=== PATIENT | female | born 1980 | race African-American/Black ===

== ENCOUNTER 2017-01-09 07:26 | Day surgery (SDC) | payer OTHER ==
--- NOTE | 2016-12-22 15:17 | HP ---
CC: Dr. Barros; Dr. Diop * PREOPERATIVE HISTORY AND PHYSICAL: DATE OF PREOPERATIVE HISTORY AND PHYSICAL EXAMINATION: 12/22/16 DATE OF ADMISSION: 01/09/17 This patient is scheduled for same-day surgery admission by Dr. Barros on Thursday , 01/09/17. ATTENDING SURGEON: Dr. Nila Barros * (dictated by Jey Mishra NP). CHIEF COMPLAINT: Left breast lump. HISTORY OF PRESENT ILLNESS: The patient is a 36-year-old female referred to Dr. Barros by Dr. Diop for evaluation of a new left breast mass. The patient denies any breast pain or nipple discharge. Dr. Barros performed a fine needle aspiration of the left breast mass and the results revealed atypia, and therefore Dr. Barros has recommended excision of the left breast mass as a same- day surgery procedure at [facility]. Dr. Barros described the nature of the surgical procedure, the rationale for the procedure, the relevant risks and benefits, and today I reviewed the typical postoperative care and recovery. The patient has had a chance to ask questions and stated that she understands the information and is satisfied with the answers given to her questions. She will sign surgical consent on the day of surgery. Menarche was at age 13; first delivery was at age 31; she is not taking control pills but she does have an implanted contraceptive Nexplanon. She has never had radiation to the chest. She has never had a previous breast biopsy. She did breast feed and she is not aware of any relatives with ovarian cancer. Her maternal grandmother may have had a history of breast cancer. PAST MEDICAL HISTORY: Migraine headaches. PAST SURGICAL HISTORY: Open repair of ventral hernia with mesh, 2013; D and C , 2007 and 2004. OBSTETRIC HISTORY: 1, para 2. She is up-to-date with breast exam, pelvic, and Pap smear. She does not get menstrual periods because of the implanted contraceptive, Nexplanon, which is in her arm. MEDICATIONS: 1. Nexplanon implanted contraceptive. 2. Relpax 40 mg 1 tablet at the onset of migraine, may repeat after 2 hours. 3. Tizanidine 2 mg daily at bedtime. 4. Ketorolac 10 mg 1 tablet every 8 hours p.r.n. migraine. 5. Ondansetron 4 mg as needed for nausea. 6. Verapamil ER 120 mg daily at bedtime. 7. Excedrin Migraine as needed. 8. Multivitamin Gummies daily. ALLERGIES: No known drug allergies. FAMILY HISTORY: No known anesthesia complications, bleeding tendencies, or clotting disorders. Maternal grandmother had a history of breast cancer, diabetes, heart disease, and hypertension. No known family history of ovarian cancer. 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 She has never been a smoker. She rarely drinks alcohol and denies the use of other substances. She lives with her 2 daughters, who are twins age 4. REVIEW OF SYSTEMS: Constitutional: No fevers, chills, excessive fatigue, or weight loss. Endocrine: No diabetes or thyroid disease. Hematologic: No easy bruising or bleeding. No previous blood transfusions. Breasts: Abnormal left breast mass. Respiratory: No cough or dyspnea on exertion. Cardiovascular: No anginal chest pain or palpitations. Gastrointestinal: No nausea, vomiting, diarrhea or constipation. Genitourinary: No dysuria. Musculoskeletal: No joint pain or back pain. Neurologic: No blurred vision. History of migraine headaches, none today. General: No history of deep vein thrombosis or pulmonary embolism. No history of anesthesia complications. PHYSICAL EXAMINATION GENERAL SURVEY: The patient is a 36-year-old female, well developed, well nourished, in no acute distress. VITAL SIGNS: Height 63 inches, weight 145 pounds, body mass index 25.7. Blood pressure 116/70, pulse 60 and regular, respiratory rate 16, temperature 98.1 tympanic. HEENT: Benign. NECK: Supple. No cervical lymphadenopathy. No supraclavicular lymphadenopathy. LUNGS: Breath sounds bilaterally clear and equal. BREASTS: Symmetrical. No skin changes. Palpation reveals dominant mass in the left breast located at the 9 o'clock position. The left breast mass is large, soft, smooth at edges, and mobile. No masses noted in the right breast. Nipples are everted. No nipple discharge bilaterally. No palpable axillary lymph adenopathy bilaterally. HEART: Regular rate and rhythm. No murmurs or rubs appreciated. ABDOMEN: Well healed surgical scar above the umbilicus in the midline. Active bowel sounds. Nondistended, nontender throughout. No obvious masses or organomegaly or evidence of ventral hernia. PELVIC AND RECTAL EXAMS: Done recently, not repeated. EXTREMITIES: Warm without edema or skin ulcerations. NEUROLOGIC: Alert and oriented x3, steady gait. SKIN: Warm, dry, and intact. IMPRESSION: Left breast mass. PLAN: Same-day surgery admission to Dr. Barros's service on 01/09/17, for excision of left breast mass. JEY MISHRA, DROP COUNT ASSOCIATE [id number]/[facility] #: [id number] [facility] HOSPITALIdalmis
[~2017-01-09 07:26] MED LIST: Buffered Lidocaine 0.9% SYRIN* 5 ML/SYR SYRINGE INTRADERM ONE; Bupivacaine 0.5% SDV PF* 30 ML VIAL ONE; Famotidine IV* 10 MG/ML 2 ML (20 mg) IV ONE; Lidocaine 1% INJ* 10 MG/ML 30 ML SDV ONE
[2017-01-09] MEDS ORDERED: Buffered Lidocaine 0.9% SYRIN* 5 ML/SYR SYRINGE ONE (07:37)
[2017-01-09] MEDS ORDERED: Famotidine IV* 10 MG/ML 2 ML (20 mg) ONE (07:37)
[2017-01-09] MEDS ORDERED: ceFAZolin 2 GM PREMIX (*) 50 ML IVPB ONE (08:07)
[2017-01-09] MEDS ORDERED: fentaNYL* 50 MCG/ML 2 ML VIAL (100 MCG VIAL) ONE (08:21)
[2017-01-09] MEDS ORDERED: Midazolam* 1 MG/ML 5 ML VIAL (5 MG) ONE (08:21)
[2017-01-09] MEDS ORDERED: Ondansetron INJ* 2 MG/ML VIAL ONE (09:03)
[2017-01-09] MEDS ORDERED: Dexamethasone IV* 4 MG/ML 1 ML (4 MG) ONE (09:03)
[2017-01-09] MEDS ORDERED: Lidocaine 2% PF * 5 ML VIAL ONE (09:03)
[2017-01-09] MEDS ORDERED: Propofol* 10 MG/ML 20 ML BTL IV PUSH ONE (09:03)
[2017-01-09] MEDS ORDERED: Ketorolac INJ* 30 MG/ML 1 ML VIAL ONE (09:03)
[2017-01-09] MEDS ORDERED: oxyCODONE TAB* 5 MG TAB PO PRN (09:04)
[2017-01-09] MEDS ORDERED: DiMENhydriNATE IV* 50 MG/ML VIAL IV PUSH PRN (09:04)
[2017-01-09] MEDS ORDERED: HYDROmorphone INJ* 1 MG/ML CARPUJECT SYRINGE IV PRN (09:04)
[2017-01-09] MEDS ORDERED: Acetaminophen TAB* 325 MG PO PRN (09:04)
[2017-01-09] MEDS ORDERED: HYDROmorphone INJ* 1 MG/ML CARPUJECT SYRINGE ONE (09:24)
--- NOTE | 2017-01-09 09:44 | SURGPN ---
Brief Operative Note - Surgery Procedures: Procedures ANESTH INJECT-SPIN CANAL (11/16/12) ARTIF RUPT MEMBRANES NEC (11/16/12) EKG (11/16/12) MONITORING NOS (11/16/12) INJECT/INFUSE NEC (05/25/12) MANUAL ASSIST DELIV NEC (11/16/12) MEDICAL INDUCTION LABOR (11/16/12) OTH & OPEN REP OTH HERNIA OF ANTER ABD WALL W GRF OR PROSTH (01/25/14) OTHER INSTILLATION (11/16/12) REPAIR OB LACERATION NEC (11/16/12) 01/09/17 Op Note (dictated) Pre-op dx: left breast lump Post-op dx: same Procedure: excision left breast lump Surgeon: Papo Asst: none Anesth: general EBL: 5 cc Complications: none SCDs on during surgery Abx: given pre-op Pt. tolerated procedure well and was transferred to in a stable condition. CLFoster
[2017-01-09] MEDS ORDERED: oxyCODONE/Acetamin 5/325 MG* TAB PO PRN (09:45)
[2017-01-09 11:06] VITALS: BP 101/76
--- NOTE | 2017-01-09 16:21 | OP ---
CC: [facility]; Dr. Addison Loyola OPERATIVE REPORT: DATE OF OPERATION: 01/09/17 DATE OF : 82 SURGEON: Nila Barros MD FIXED INCOME TRADING VICE PRESIDENT: There was no administrative support assistant for this case. PRE-OP DIAGNOSIS: Left breast lump. POST-OP DIAGNOSIS: Left breast lump. OPERATIVE PROCEDURE: Excision of left breast lump. INDICATIONS: Ms. Hamlin is a 36-year-old woman, who presented to the office with a soft mobile lump i n the left breast that was somewhat uncomfortable prompting the plan for surgical intervention. DESCRIPTION OF PROCEDURE: She was brought to the operating room, placed on the OR table in the supi ne position and given general anesthesia. The left breast was prepped and draped in the usual steri le fashion. After infiltrating with local anesthetic, a curvilinear incision was made in a circumar eolar fashion. Subcutaneous tissue was divided with electrocautery and sharp dissection until the in ferior edge of the mass, which was very well defined, could be grasped. 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 This was removed using sharp and blunt dissection and then handed off as a specimen. Hemostasis was assured with electrocautery and the wound was irrigated with sali ne and then additional local was instilled into the wound. Closure was accomplished with 3-0 Polyso rb in a subcutaneous layer and the skin was closed with 4-0 Surgipro in a subcuticular fashion. Marty ri-Strips and a dry sterile dressing were applied. All sponge and instrument counts are correct. Th e patient tolerated the procedure well and was transferred to Recovery in a stable condition. [id number]/[facility] #: [id number]
== END 2017-01-09 11:25 | disposition home or self-care (01) ==
LOC: OR 07:26
PROVIDERS: ATTEND Surgery
DX: N60.12 Diffuse cystic mastopathy of left breast (principal); Z79.3 Long term (current) use of hormonal contraceptives
CPT/HCPCS: 81025; 88307; J0690; J1100; J1170; J1885; J2001; J2250; J2405; J2704; J3010

== ENCOUNTER 2017-09-29 17:35 | Emergency (ER) | payer OTHER ==
[2017-09-29 17:51] VITALS: BP 122/85
[2017-09-29] MEDS ORDERED: Metoclopramide IV* 5 MG/ML 2 ML VIAL ONE (18:11)
[2017-09-29] MEDS ORDERED: Ketorolac INJ* 30 MG/ML 1 ML VIAL IM ONE (18:13)
--- NOTE | 2017-09-29 18:20 | UC ---
Headache HPI - HPI Summary HPI Summary: 36 year old female with history of migraine here with headache. She reports she usually gets Botox for headaches and improved with Excedrin. But symptoms not improved with excedrin and she is due for her botox soon. Reports nausea but no vomiting, numbness or tingling or motor deficit. No other complaints. - History Of Current Complaint Chief Complaint: UCHeadache Stated Complaint: HEADACHE Time Seen by Provider: 09/29/17 17:54 Hx Obtained From: Patient Hx Last Menstrual Period: July 2017- states she has the nexplanon implant Onset/Duration: Gradual Onset Onset Of Symptoms: Gradual Pain Intensity: 6 Timing: Constant Location of Headache: Frontal Associated Signs And Symptoms: Positive: Nausea, Neck Stiffness - Allergies/Home Medications Allergies/Adverse Reactions: Allergies Allergy/AdvReac Type Severity Reaction Status Date / Time No Known Allergies Allergy Verified 09/29/17 17:43 PMH/Surg Hx/FS Hx/Imm Hx Previously Healthy: No - Surgical History Surgical History: Yes Surgery Procedure, Year, and Place: polyp removed from uterus x2 - [facility] - Social History Alcohol Use: None Substance Use Type: None Smoking Status (MU): Never Smoked Tobacco Have You Smoked in the Last Year: No - Immunization History Most Recent Influenza Vaccination: 01/2012 Most Recent Tetanus Shot: 09/07/2012 Review of Systems Constitutional: Negative Skin: Negative Eyes: Negative ENT: Negative Respiratory: Negative Cardiovascular: Negative Gastrointestinal: Negative Genitourinary: Negative Motor: Negative Neurovascular: Negative Musculoskeletal: Negative Neurological: Negative Psychological: Negative All Other Systems Reviewed And Are Negative: Yes Physical Exam Triage Information Reviewed: Yes Appearance: Well-Appearing, No Pain Distress Vital Signs: Initial Vital Signs Temp 37.4 C 09/29/17 17:44 Pulse 92 09/29/17 17:44 Resp 18 09/29/17 17:44 BP 122/85 09/29/17 17:44 Pulse Ox 99 09/29/17 17:44 Eye Exam: Normal ENT Exam: Normal Neck exam: Normal Respiratory Exam: Normal Cardiovascular Exam: Normal Neurological Exam: Normal Psychological Exam: Normal Skin Exam: Normal Headache Course/Dx - Differential Dx/Diagnosis Differential Diagnosis/HQI/PQRI: Migraine, Sinus Headache, Temporal Arteritis Provider Diagnoses: Migraine Discharge - Sign-Out/Discharge Documenting (check all that apply): Discharge/Admit/Transfer - Discharge Plan Condition: Good Disposition: HOME Prescriptions: Butalbital/Aspirin/Caffeine [Fiorinal 50-325-40 mg-] 1 cap PO Q6H PRN #12 cap MDD 2 PRN Reason: Headache/Pain Patient Education Materials: Migraine Headache (ED) Referrals: Addison Loyola MD [Primary Care Provider] - - Billing Disposition and Condition Condition: GOOD Disposition: Home
== END 2017-09-29 18:45 | disposition home or self-care (01) ==
LOC: UCEAST 17:35
DX: G43.909 Migraine, unspecified, not intractable, without status migrainosus (principal); R11.0 Nausea; M43.6 Torticollis
CPT/HCPCS: 96372; 99212; G0463; J1885; J2765

== ENCOUNTER 2018-10-19 12:15 | Emergency (ER) | payer OTHER ==
[2018-10-19] MEDS ORDERED: NS 0.9% 1000 ML** 1,000 ML IV ONE (13:13)
[2018-10-19] MEDS ORDERED: Ketorolac INJ* 30 MG/ML 1 ML VIAL IV ONE (13:36)
--- NOTE | 2018-10-19 13:42 | UC ---
Headache HPI - HPI Summary HPI Summary: PATIENT ARRIVES COMPLAINING OF 12 DAYS OF MIGRAINE HEADACHE. SYMPTOMS NORMALLY MANAGED WITH BOTOX INJECTION EVERY 3 MONTHS AND EXCEDRIN. STATES EXCEDRIN IS NOT HELPING AT PRESENT. CALLED HER NEUROLOGIST ON 10/13/18 WAS GIVEN A SIX-DAY COURSE OF STEROIDS WHICH SHE STATES HAS NOT HELPED. REPORTS SHE IS HAVING BACK PAIN, ABDOMINAL PAIN, NAUSEA AND SWEATS A RESULT OF HER HEADACHE SYMPTOMS. NO FEVER. NO URINARY SX. - History Of Current Complaint Chief Complaint: UCHeadache Stated Complaint: SEVERE HEADACHE Time Seen by Provider: 10/19/18 12:51 Hx Obtained From: Patient Hx Last Menstrual Period: no periods - nexplanon states Onset/Duration: Gradual Onset, Lasting Days, Still Present Onset Of Symptoms: Gradual Pain Intensity: 0 Timing: Constant Character: Dull, Throbbing Location of Headache: Temporal Aggravating Factor(s): Nothing Allevating Factor(s): Nothing Associated Signs And Symptoms: Positive: Nausea. Negative: Dizziness, Seizure, Vomiting, Fever, Neck Pain, Decreased LOC, Visual Changes - Allergies/Home Medications Allergies/Adverse Reactions: Allergies Allergy/AdvReac Type Severity Reaction Status Date / Time No Known Allergies Allergy Verified 10/19/18 12:53 Home Medications: Home Medications Onabotulinimtoxina 100 UNITS* [Botox 100 UNITS*] 100 units .SEE ORDER ONCE 10/19 [History Confirmed 10/19/18] PMH/Surg Hx/FS Hx/Imm Hx Neurological History: Migraine - Surgical History Surgical History: Yes Surgery Procedure, Year, and Place: polyp removed from uterus x2 - [facility] - Family History Known Family History: Positive: Non-Contributory - Social History Alcohol Use: None Substance Use Type: None Smoking Status (MU): Never Smoked Tobacco Have You Smoked in the Last Year: No - Immunization History Most Recent Influenza Vaccination: 01/2012 Most Recent Tetanus Shot: 09/07/2012 Review of Systems All Other Systems Reviewed And Are Negative: Yes Constitutional: Positive: Fatigue Respiratory: Positive: Negative Cardiovascular: Positive: Negative Gastrointestinal: Positive: Abdominal Pain, Nausea Neurological: Positive: Headache Physical Exam Triage Information Reviewed: Yes Appearance: Well-Appearing, Well-Nourished, Pain Distress - MOD Vital Signs: Initial Vital Signs Temp 98.6 F 10/19/18 12:57 Pulse 72 07/16/19 12:57 Resp 24 10/19/18 12:57 BP 126/92 10/19/18 12:57 Pulse Ox 98 10/19/18 12:57 Vital Signs Reviewed: Yes Eyes: Positive: Conjunctiva Clear ENT: Positive: Hearing grossly normal Neck: Positive: Supple Respiratory Exam: Normal Cardiovascular Exam: Normal Abdomen Description: Positive: Nontender, Soft. Negative: CVA Tenderness (R), CVA Tenderness (L), Distended, Guarding Bowel Sounds: Positive: Present Musculoskeletal: Positive: No Edema Neurological: Positive: Alert Psychological: Positive: Age Appropriate Behavior Skin: Negative: Rashes Diagnostics - Radiology CT HEAD W/O CONTRAST Radiology Interpretation Completed By: Radiologist Summary of Radiographic Findings: No intracranial mass or hemorrhage is noted. Headache Course/Dx - Course Course Of Treatment: SLIGHT IMPROVEMENT AFTER TORADOL AND NORMAL SALINE HERE IN THE UC. GIVEN PATIENT'S ASSOCIATED SYMPTOMS HAVE CHECKED A CBC, CMP AND TSH TO FURTHER EVALUATE. PATIENT DECLINES TRANSFER TO THE ER TODAY. CT HEAD OBTAINED AT SHIFT CHANGE. CASE DISCUSSED WITH DR. GOMEZ. OKAY TO BE DISCHARGED HOME IF CT HEAD IS UNREMARKABLE. PT WILL F/U WITH HER NEUROLOGIST. - Differential Dx/Diagnosis Provider Diagnosis: Migraine Discharge - Sign-Out/Discharge Documenting (check all that apply): Patient Departure All imaging exams completed and their final reports reviewed: Yes - Discharge Plan Condition: Stable Disposition: HOME Patient Education Materials: Migraine Headache (ED) Referrals: Bety Tristan MD [Medical Doctor] - 1 Day Additional Instructions: SLIGHT IMPROVEMENT AFTER 1 L NORMAL SALINE AND [address] HEAD TODAY UNREMARKABLE. BLOOD DRAWN TO EVALUATE FOR OTHER UNDERLYING CAUSE OF YOUR SYMPTOMS (BLOOD COUNT, METABOLIC PANEL AND THYROID). WE WILL CALL YOU WITH ANY ABNORMAL RESULTS. FOLLOW-UP WITH YOUR NEUROLOGIST. GO TO THE ER WITHOUT FAIL IF YOUR SYMPTOMS WORSEN. - Billing Disposition and Condition Condition: STABLE Disposition: Home
[2018-10-19 15:22] VITALS: BP 126/70
--- NOTE | 2018-10-19 15:24 | UC ---
Course/Dx - Course Course Of Treatment: Patient was signed out to Dr. Daugherty to follow-up the head CT and the patient and 7. She recommended if the CT of the head is negative she can safely discharged home with follow-up with PCP. The head CT impression: No acute interconnected pathology. She reports improvement in her migraine headache. She was instructed to return to the urgent care or go to the emergency department if symptoms worsen. The patient understands and agrees. - Diagnoses Provider Diagnoses: Migraine Discharge - Sign-Out/Discharge Documenting (check all that apply): Patient Departure All imaging exams completed and their final reports reviewed: Yes - Discharge Plan Condition: Stable Disposition: HOME Patient Education Materials: Migraine Headache (ED) Referrals: Bety Tristan MD [Medical Doctor] - 1 Day Additional Instructions: SLIGHT IMPROVEMENT AFTER 1 L NORMAL SALINE AND [address] HEAD TODAY UNREMARKABLE. BLOOD DRAWN TO EVALUATE FOR OTHER UNDERLYING CAUSE OF YOUR SYMPTOMS (BLOOD COUNT, METABOLIC PANEL AND THYROID). WE WILL CALL YOU WITH ANY ABNORMAL RESULTS. FOLLOW-UP WITH YOUR NEUROLOGIST. GO TO THE ER WITHOUT FAIL IF YOUR SYMPTOMS WORSEN. - Billing Disposition and Condition Condition: STABLE Disposition: Home
[2018-10-19 19:38] LABS: ABS Lymphocytes 1.7 10^3/ul (1.0-4.8); ABS Monocytes 0.4 10^3/ul (0-0.8); ABS Neutrophils 7.7 10^3/ul (1.5-7.7); Eosinophil % 0.2 %; Hematocrit 42 % (35-47); Hemoglobin 14.3 g/dL (12.0-16.0); Lymphocyte % 17.4 %; Mean Corpuscular HGB Conc 34 g/dL (31-36); Mean Corpuscular Hemoglobin 28 pg (27-31); Mean Corpuscular Volume 82 fL (80-97); Mean Platelet Volume 8.5 fL (7.4-10.4); Nucleated Red Blood Cells % 0.1; Platelet Count 278 10^3/uL (150-450); Red Cell Distribution Width 14 % (10-15)
[2018-10-19 19:43] LABS: Albumin 4.1 g/dL (3.2-5.2); Calcium 9.1 mg/dL (8.6-10.3); Potassium 4.2 mmol/L (3.5-5.0); Total Bilirubin 0.9 mg/dL (0.2-1.0)
[2018-10-19 19:49] LABS: Albumin/Globulin Ratio 1.6 (1-3); BUN/Creatinine Ratio 18.3 (8-20); EGFR African American 136.9 (>60); EGFR Non-African American 113.1 (>60); Globulin 2.5 g/dL (2-4); Total Protein 6.6 g/dL (6.4-8.9)
[2018-10-19 20:02] LABS: TSH (Thyroid Stimulating Horm) 0.41 mcIU/mL (0.34-5.60)
--- NOTE | 2018-10-20 08:11 | UC ---
- Progress Note Progress Note: Please call pt. CBC and CMP grossly unremarkable. TSH is borderline low. Recommend recheck with PCP. Borderline hyperthyroidism may explain some of her symptoms. Course/Dx - Diagnoses Provider Diagnoses: Migraine Discharge - Sign-Out/Discharge Documenting (check all that apply): Post-Discharge Follow Up All imaging exams completed and their final reports reviewed: Yes - Discharge Plan Condition: Stable Disposition: HOME Patient Education Materials: Migraine Headache (ED) Referrals: Bety Tristan MD [Medical Doctor] - 1 Day Additional Instructions: SLIGHT IMPROVEMENT AFTER 1 L NORMAL SALINE AND [address] HEAD TODAY UNREMARKABLE. BLOOD DRAWN TO EVALUATE FOR OTHER UNDERLYING CAUSE OF YOUR SYMPTOMS (BLOOD COUNT, METABOLIC PANEL AND THYROID). WE WILL CALL YOU WITH ANY ABNORMAL RESULTS. FOLLOW-UP WITH YOUR NEUROLOGIST. GO TO THE ER WITHOUT FAIL IF YOUR SYMPTOMS WORSEN. - Billing Disposition and Condition Condition: STABLE Disposition: Home
--- NOTE | 2018-10-20 17:21 | UC ---
- Progress Note Progress Note: urine culture final neg no change daren 10/20/18 Course/Dx - Diagnoses Provider Diagnoses: Migraine Discharge - Sign-Out/Discharge Documenting (check all that apply): Post-Discharge Follow Up All imaging exams completed and their final reports reviewed: Yes - Discharge Plan Condition: Stable Disposition: HOME Patient Education Materials: Migraine Headache (ED) Referrals: Bety Tristan MD [Medical Doctor] - 1 Day Additional Instructions: SLIGHT IMPROVEMENT AFTER 1 L NORMAL SALINE AND [address] HEAD TODAY UNREMARKABLE. BLOOD DRAWN TO EVALUATE FOR OTHER UNDERLYING CAUSE OF YOUR SYMPTOMS (BLOOD COUNT, METABOLIC PANEL AND THYROID). WE WILL CALL YOU WITH ANY ABNORMAL RESULTS. FOLLOW-UP WITH YOUR NEUROLOGIST. GO TO THE ER WITHOUT FAIL IF YOUR SYMPTOMS WORSEN. - Billing Disposition and Condition Condition: STABLE Disposition: Home
== END 2018-10-19 15:10 | disposition home or self-care (01) ==
LOC: UCEAST 12:15
DX: G43.909 Migraine, unspecified, not intractable, without status migrainosus (principal)
CPT/HCPCS: 36415; 70450; 80053; 81003; 84443; 84702; 85025; 87086; 96360; 96374; 99211; G0463; J1885

== ENCOUNTER 2018-12-23 07:42 | Emergency (ER) | payer OTHER ==
--- OUTSIDE RECORDS SUMMARY | 2018-12-23 07:50 | XMS REPORT | Continuity of Care Document ---
:1980 External Reference #:[id number] Author Name Shell Ugalde Care Team Providers Name Role Phone Brook Enriquez CNP Care Team Information Cover Stripper Unavailable Daniel Mena D.O. Primary Care Physician Unavailable Payers Date Identification Numbers Payment Provider Subscriber Policy Number: [id number] [employer] Jayne Hamlin PayID: [id number] [address] [place] [address] Expires: 2016 Policy Number: [id number] [facility] Jayne Hamlin PayID: [id number] [facility]n [facility] [employer] [facility] [address] [place] [address] Effective: 2012 Policy Number: [id number] [employer] Jayne Hamlin Expires: 2014 PayID: [id number] [address] [address] [place] [address] Effective: 2012 Policy Number: [id number] Medicaid Jayne Hartmann Hamlin Expires: 2012 Group Name: 1 1 [address] PayID: [id number] [place] [address] Effective: 2012 Policy Number: [id number] [employer] Jayne Hartmann Hamlin Expires: 2012 PayID: [id number] [address] [place] [address] Expires: 2012 Policy Number: [id number] [facility] Jayne Hartmann Hamlin Group Number: [id number] [address] PayID: [id number] [place] [address] Effective: 2014 Policy Number: [id number] [employer] Jayne Hamlin Expires: 2015 PayID: [id number] [address] [address] [place] [address] Effective: 2016 Policy Number: [id number] [facility] Jayne Hamlin Expires: 2018 Group Number: 50% [id number] PayID: [id number] [address] [place] [address] Problems Active Problems Provider Date Refractory migraine Marybel Haley M.D. Onset: 01/29/2011 Acute sinusitis Dick Mckeon NP Onset: 05/12/2016 Family History Date Family Member(s) Observation Comments Mother DM Document: 08/11/07 - Prog Note - Sosa Mother Migraines Document: 08/11/07 - Prog Note - Sosa Mother IBS Document: 08/11/07 - Prog Note - Sosa First Brother Asthma And Migraine Document: 08/11/07 - Prog Note - Sosa Second Brother Migraine Document: 08/11/07 - Prog Note - Sosa Third Brother HTN And Migraine Document: 08/11/07 - Prog Note - Sosa Second Sister Migraine Document: 08/11/07 - Prog Note - Sosa Social History Type Date Description Comments Sex Unknown Marital Status Occupation [employer] Document: 08/11/07 - [place] Prog Note - Sosa Hand Dominance Right-handed Tobacco Use Start: Unknown Never Smoked Cigarettes ETOH Use Rarely consumes alcohol special occasions Tobacco Use Start: Unknown Patient has never smoked Smoking Status Reviewed: 07/02/18 Patient has never smoked Allergies, Adverse Reactions, Alerts Description No Known Drug Allergies Medications Active Medications SIG Qnty Indications Ordering Provider Date Ketorolac Tromethamine take 1 by mouth 3tabs Bety Tristan, 10/20/2018 every 12 hours M.D. 10mg Tablets for severe headache. Take with food and water. Tizanidine HCL take 1 tablet by 30caps G43.011 Bety Trisatn, 07/21/2016 2mg mouth at bedtime M.D. Capsules Ondansetron HCL comp[leted one 40tabs G43.011 Bety Tristan, 11/05/2015 4mg to two by mouth M.D. Tablets every 8 hours as needed for nausea Verapamil HCL ER 1 by mouth every 30caps G43.719 Bety Tristan, 12/26/2014 120mg night at bedtime M.D. Caps ER 24HR Excedrin Migraine 1 po as needed Unknown [phone] Tablets Nexplanon Unknown 68mg Implant Botox Unknown 200Unit Solution Rec History Medications Medrol take as directed. 21units Bety Tristan, 10/13/2018 - 4mg TBPK take in morning with M.D. 10/20/2018 food Oxycodone-Acetaminoph 1 tab by mouth every 12tabs Laly B. 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 9 M.D. 06/25/2017 may repeat after 2 hours, no more than 2 tabs in 24 hours, no more than 2 days a week Prednisone take 3 po qam x 20tabs G43.01 Bety Tristan, 07/21/2016 - 20mg Tablets 3days, then 2 po qam 1 M.D. 11/20/2016 x3 days then 1 po qam x3 days then 1/2 po qam x3 days (take in am with food) Amoxicillin/Clavulana 1 tablet by mouth 20tabs J01.90 Dick Mckeon, 2016 - te Potassium twice a day x's 10 TAR WORKER 05/22/2016 875-125mg days Tablets Prednisone Completed take 3 po 20tabs Bety Tristan, 12/11/2015 - 20mg Tablets qam x 3days, then 2 M.D. 07/20/2016 po qam x3 days then 1 po qam x3 days then 1/2 po qam x3 days (take in am with food) Ketorolac take 1 by mouth every 12tabs G43.01 Bety Tristan, 11/05/2015 - Tromethamine 8 hours as needed for 1 M.D. 06/25/2017 10mg migraine. take with Tablets food. Cyclobenzaprine HCL 1 - 2 by mouth every 40tabs Bety Tristan, 2014 - 5mg 8 hours, as needed M.D. 06/19/2015 Tablets muscle spasm/ headache Prednisone take 3 po qam x 20tabs 346.71 Bety Azalea, 12/06/2014 - 20mg Tablets 3days, then 2 po qam M.D. 01/31/2015 x3 days then 1 po qam x3 days then 1/2 po qam x3 days (take in am with food) Verapamil HCL ER take one by mouth at 30caps 346.71 Bety Tristan, 2014 - 100mg bedtime M.D. 12/26/2014 Caps ER 24HR Nortriptyline HCL 2 by mouth every 90caps 346.71 Bety Tristan, 2014 - 10mg night at bedtime M.D. 12/05/2014 Capsules Sumatriptan Succinate Take 1/2 To 1 Tablet 12tabs 346.10 Sadaf 01/13/2012 - By Mouth Upon Onset Bernard, N.P. 04/30/2012 100mg Tablets Of Headache: August Repeat 1 Time After 2 Hours If For Headache Recurs Relpax prn q2h po mdd 2 6tabs 346.10 Addison Ma 12/29/2011 - 40mg Tablets [place], 01/13/2012 Remberto.DMarlene,FACP Propranolol HCL ER 1 po qd 30caps 346.10 Addison Ma 12/29/2011 - 60mg [place], 04/30/2012 Caps ER 24HR M.D.,FACP Ondansetron Odt po tid prn 20tabs 346.10 Addison Ma 12/29/2011 - 4mg Nir, 04/30/2012 Tablets Dispers M.D.,FACP Maxalt po one at onset; august 18tabs 346.10 Addison Ma 12/18/2011 - 10mg Tablets repeat in 2 hours x1. [place], 12/29/2011 max daily dose 2. M.D.,FACP Riboflavin 4 qd 120caps 346.80 Addison Ma 12/18/2011 - 100mg [place], 04/30/2012 Capsules Remberto.D.,FACP Magnesium Oxide po qd 30caps 346.80 Addison Ma 12/18/2011 - 400mg [place], 04/30/2012 Capsules Remberto.DMarlene,FACP Maxalt 1 po q2h MDD3 prn 18tabs Addison Ma 12/11/2011 - 5mg Tablets [place], 12/18/2011 Fabrizio,FACP Depakote ER 1 po qpm 30tabs 346.10 Addison Ma 07/28/2011 - 500mg [place], 12/18/2011 Tablets ER 24HR Fabrizio,FACP Ibuprofen 1 po tid prn 60tabs Marybel Haley 02/13/2011 - 600mg Tablets Remberto.Anil 04/30/2012 Amitriptyline HCL Take 1 tablet at 30tabs 346.80 Marybel Haley, 02/13/2011 - 10mg night for migraine Fabrizio 07/28/2011 Tablets prevention Ibuprofen 1 po tid prn 60tabs Aman Davila 01/28/2010 - 600mg Tablets Fabrizio Sweeney 02/13/2011 Amoxicillin 2 tabs po bid for 10 40tabs 079.99 Addison Ma 05/02/2008 - 500mg days Nir, 02/02/2009 Tablets Fabrizio,FACP Zomig 1 prn migraine august 18tabs 346.80 Addison Ma 08/11/2007 - 5mg Tablets repeat in 2 hours x 1 Nir, 01/29/2011 Fabrizio,FACP Depakote ER 1 po qpm 30tabs Addison Ma 08/09/2007 - 500mg Nir, 08/02/2009 Tablets ER 24HR Fabrizio,FACP Maxalt prn MDD2 18tabs Addison Ma 08/09/2007 - 5mg Tablets Nir, 08/11/2007 Fabrizio,FACP Naprosyn 1 PO bid prn 50tabs Addison Ma 08/09/2007 - 500mg Tablets [place], 08/11/2007 Fabrizio,FACP Fluarix Quadrivalent inject 0.5 milliliter Unknown - intramuscularly 11/20/2016 0.5ml Gayle Multi Adult Gummies 1 by mouth every day Unknown - 06/25/2017 Chewtabs Cyclobenzaprine HCL 1-2 tablet by mouth Unknown - 5mg three times a day as 09/24/2015 Tablets needed Propranolol HCL ER 1 po qd Cowdery, - 80mg MD Bety 05/23/2014 Caps ER 24HR Magnesium Oxide 1 by mouth every day 90tabs Unknown - 01/04/2014 400(240Mg) mg Tablets Naproxen Unknown - 05/23/2014 Nifedipine ER 1 po qd 90tabs Unknown - 30mg 06/13/2013 Tablets ER 24HR Labetalol HCL 1 po tid 60tabs Unknown - 200mg 06/13/2013 Tablets Multivitamins 1 capsule daily 30caps Unknown - Capsules 08/01/2014 Herbal Anti Headache 1 cap as needed Unknown - Remedy 12/13/2012 Tylenol 2 tabs po prn Unknown - 500mg Tablets 06/22/2013 Ferrous Gluconate 1 tabpo 2x per day 60tabs Unknown - Iron 12/13/2012 246(28Fe) mg Tablets Calcium 1200 1 po qd 90units Unknown - 12/13/2012 [id number] Chewtabs 1 po every day 100tabs Unknown - Multivitamin-Ultra 12/13/2012 Tablets Crinone Unknown - 8% Gel 07/19/2012 Excedrin Migraine prn Unknown - 12/11/2011 Tablets Medications Administered in Office Medication SIG Qnty Indications Ordering Provider Date Influenza,Nasal,Unspecified Unknown 01/01/2018 Injection Influenza,Unspecified Unknown 11/12/2016 Injection Celestone 3 mg and 3mg Rosetta Agustin, 06/22/2013 Injection M.D. Immunizations CPT Code Status Date Vaccine Lot # [id number] Given 01/24/2016 Afluria Vaccine 62030 Given 12/27/2014 Influenza Virus Vaccine, Quadrivalent, Split, Preservative Free 21818 Given 01/20/2014 Flu Vaccine Split Virus Preservative Free For Indiv 3Yr Older Q2035 Given 01/26/2013 Afluria Vaccine [id number] Given 12/18/2011 Fluzone Vaccine [id number] Vital Signs Date Vital Result Comment 11/10/2018 10:44am Height 63 inches 5'3" Weight 149.25 lb Heart Rate 88 /min BP Systolic Sitting 110 mmHg BP Diastolic Sitting 78 mmHg Respiratory Rate 16 /min BMI (Body Mass Index) 26.4 kg/m2 07/02/2018 3:35pm Height 63 inches 5'3" Weight 140.00 lb Heart Rate 86 /min BP Systolic Sitting 114 mmHg BP Diastolic Sitting 74 mmHg Respiratory Rate 16 /min BMI (Body Mass Index) 24.8 kg/m2 01/01/2018 10:08am Height 63 inches 5'3" Weight 145.00 lb Heart Rate 70 /min BP Systolic Sitting 120 mmHg BP Diastolic Sitting 76 mmHg Respiratory Rate 16 /min BMI (Body Mass Index) 25.7 kg/m2 06/26/2017 10:37am Height 63 inches 5'3" Weight 143.00 lb Heart Rate 72 /min BP Systolic Sitting 128 mmHg BP Diastolic Sitting 78 mmHg Respiratory Rate 16 /min BMI (Body Mass Index) 25.3 kg/m2 01/13/2017 9:33am Heart Rate 72 /min BP Systolic 118 mmHg BP Diastolic 82 mmHg Respiratory Rate 16 /min Body Temperature 98.2 F 2016 10:55am Height 63 inches 5'3" Weight 145.00 lb Heart Rate 60 /min BP Systolic 116 mmHg BP Diastolic 70 mmHg Respiratory Rate 16 /min Body Temperature 98.1 F BMI (Body Mass Index) 25.7 kg/m2 12/16/2016 10:40am Height 63 inches 5'3" Weight 145.00 lb Heart Rate 72 /min BP Systolic 120 mmHg BP Diastolic 82 mmHg Respiratory Rate 16 /min Body Temperature 98.0 F BMI (Body Mass Index) 25.7 kg/m2 11/25/2016 11:35am Height 62 inches 5'2" Weight 141.00 lb Heart Rate 68 /min BP Systolic 122 mmHg BP Diastolic 82 mmHg Respiratory Rate 16 /min Body Temperature 98.7 F BMI (Body Mass Index) 25.8 kg/m2 11/21/2016 2:16pm Height 63 inches 5'3" Weight 141.00 lb Heart Rate 72 /min BP Systolic Sitting 112 mmHg BP Diastolic Sitting 78 mmHg Respiratory Rate 14 /min BMI (Body Mass Index) 25.0 kg/m2 07/21/2016 10:34am Height 63 inches 5'3" Weight 138.38 lb Heart Rate 60 /min BP Systolic Sitting 104 mmHg BP Diastolic Sitting 70 mmHg Respiratory Rate 12 /min BMI (Body Mass Index) 24.5 kg/m2 05/12/2016 12:05pm Weight 137.00 lb Heart Rate 64 /min BP Systolic Sitting 118 mmHg BP Diastolic Sitting 64 mmHg Body Temperature 97.8 F O2 % BldC Oximetry 98 % 11/05/2015 1:04pm Height 63 inches 5'3" Weight 130.25 lb Heart Rate 68 /min BP Systolic Sitting 92 mmHg BP Diastolic Sitting 60 mmHg Respiratory Rate 17 /min BMI (Body Mass Index) 23.1 kg/m2 09/24/2015 1:34pm Height 63 inches 5'3" Weight 120.00 lb Heart Rate 76 /min BP Systolic Sitting 112 mmHg BP Diastolic Sitting 74 mmHg Respiratory Rate 14 /min BMI (Body Mass Index) 21.3 kg/m2 06/20/2015 3:29pm Height 63 inches 5'3" Weight 123.00 lb Heart Rate 72 /min BP Systolic Sitting 118 mmHg BP Diastolic Sitting 76 mmHg Respiratory Rate 16 /min BMI (Body Mass Index) 21.8 kg/m2 02/01/2015 9:34am Height 63 inches 5'3" Weight 125.00 lb Heart Rate 68 /min BP Systolic Sitting 122 mmHg BP Diastolic Sitting 76 mmHg Respiratory Rate 16 /min BMI (Body Mass Index) 22.1 kg/m2 12/06/2014 12:04pm Height 63 inches 5'3" Weight 121.00 lb Heart Rate 76 /min BP Systolic Sitting 100 mmHg BP Diastolic Sitting 60 mmHg Respiratory Rate 16 /min BMI (Body Mass Index) 21.4 kg/m2 10/12/2014 12:10pm Height 63 inches 5'3" Weight 121.00 lb Heart Rate 72 /min BP Systolic Sitting 112 mmHg BP Diastolic Sitting 76 mmHg Respiratory Rate 16 /min BMI (Body Mass Index) 21.4 kg/m2 08/02/2014 11:50am Height 63 inches 5'3" Weight 118.00 lb Heart Rate 68 /min BP Systolic Sitting 104 mmHg BP Diastolic Sitting 66 mmHg Respiratory Rate 16 /min BMI (Body Mass Index) 20.9 kg/m2 05/24/2014 1:11pm Height 63 inches 5'3" Weight 122.00 lb Heart Rate 64 /min BP Systolic Sitting 112 mmHg BP Diastolic Sitting 68 mmHg Respiratory Rate 16 /min BMI (Body Mass Index) 21.6 kg/m2 01/05/2014 1:05pm Height 63 inches 5'3" Weight 123.38 lb Heart Rate 78 /min BP Systolic Sitting 102 mmHg BP Diastolic Sitting 68 mmHg Respiratory Rate 16 /min BMI (Body Mass Index) 21.9 kg/m2 10/12/2013 4:27pm Height 63 inches 5'3" Weight 118.00 lb Heart Rate 76 /min BP Systolic Sitting 110 mmHg BP Diastolic Sitting 78 mmHg Respiratory Rate 16 /min BMI (Body Mass Index) 20.9 kg/m2 06/22/2013 12:03pm Height 63 inches 5'3" Weight 110.00 lb Heart Rate 72 /min BP Systolic 120 mmHg BP Diastolic 75 mmHg BMI (Body Mass Index) 19.5 kg/m2 06/13/2013 1:27pm Heart Rate 67 /min BP Systolic Sitting 120 mmHg BP Diastolic Sitting 60 mmHg Respiratory Rate 16 /min 12/13/2012 1:15pm Heart Rate 89 /min BP Systolic Sitting 140 mmHg BP Diastolic Sitting 98 mmHg Respiratory Rate 12 /min 07/19/2012 2:23pm Heart Rate 86 /min BP Systolic Sitting 112 mmHg BP Diastolic Sitting 60 mmHg Respiratory Rate 16 /min 04/30/2012 2:25pm Height 62.75 inches 5'2.75" Weight 113.00 lb Heart Rate 64 /min BP Systolic Sitting 102 mmHg BP Diastolic Sitting 62 mmHg BMI (Body Mass Index) 20.2 kg/m2 01/13/2012 10:02am Height 62.75 inches 5'2.75" Weight 124.00 lb Heart Rate 76 /min BP Systolic Sitting 100 mmHg BP Diastolic Sitting 60 mmHg Body Temperature 98.0 F lt ear BMI (Body Mass Index) 22.1 kg/m2 12/29/2011 9:57am Height 62.75 inches 5'2.75" Weight 124.00 lb Heart Rate 80 /min BP Systolic Sitting 94 mmHg BP Diastolic Sitting 76 mmHg BMI (Body Mass Index) 22.1 kg/m2 12/18/2011 8:33am Height 63 inches 5'3" Weight 124.00 lb Heart Rate 88 /min BP Systolic Sitting 106 mmHg BP Diastolic Sitting 64 mmHg BMI (Body Mass Index) 22.0 kg/m2 07/28/2011 11:38am Height 63 inches 5'3" Weight 115.00 lb Heart Rate 76 /min BP Systolic Sitting 100 mmHg BP Diastolic Sitting 80 mmHg BMI (Body Mass Index) 20.4 kg/m2 02/13/2011 9:44am Height 63 inches 5'3" Weight 110.00 lb Heart Rate 76 /min BP Systolic Sitting 100 mmHg BP Diastolic Sitting 64 mmHg BMI (Body Mass Index) 19.5 kg/m2 01/29/2011 9:44am Height 63 inches 5'3" Weight 110.00 lb Heart Rate 68 /min BP Systolic Sitting 108 mmHg BP Diastolic Sitting 66 mmHg Body Temperature 99.0 F BMI (Body Mass Index) 19.5 kg/m2 01/28/2010 3:50pm Weight 106.00 lb Heart Rate 88 /min BP Systolic Sitting 120 mmHg BP Diastolic Sitting 72 mmHg 08/02/2009 9:23am Weight 97.00 lb Heart Rate 70 /min BP Systolic Sitting 120 mmHg BP Diastolic Sitting 70 mmHg 02/02/2009 11:07am Height 65 inches 5'5" Weight 104.00 lb Heart Rate 78 /min BP Systolic Sitting 90 mmHg BP Diastolic Sitting 66 mmHg BMI (Body Mass Index) 17.3 kg/m2 05/02/2008 1:05pm Height 65 inches 5'5" Weight 101.00 lb Heart Rate 62 /min BP Systolic Sitting 108 mmHg BP Diastolic Sitting 58 mmHg BMI (Body Mass Index) 16.8 kg/m2 08/11/2007 2:17pm Weight 97.00 lb Heart Rate 70 /min BP Systolic Sitting 110 mmHg BP Diastolic Sitting 60 mmHg Results Test Date Facility Test Result H/L Range Note Laboratory test [facility] Cytology SEE RESULT 1 finding [address] [place] [place], [place] [id number] [phone] Laboratory test [facility] Surgical SEE RESULT 2 finding [address] Pathology BELOW [place], [place] [id number] [phone] Laboratory test [facility] Cytology SEE RESULT 3 finding [address] Non-Atm Technician BELOW [place], [place] [id number] [phone] Laboratory test [facility] Urine Negative Normal Negative 4 finding [address] [place], [place] [id number] [phone] Creatinine 24HR [facility] Urine Random 73.9 mg/dL Urine [address] Creatinine [place], [place] [id number] [phone] Urine Creatinine/24HR 1108.5 mg/24Hr 600-1800 Urine Collection Time 24 Urine Total Volume 1500 mL Total Protein 24HR 11/05/2012 [facility] Urine Random Total 15 mg/dL Urine [address] [place] [address] [phone] Urine Total Protein/24HR 225 mg/24Hr High 0-165 Type & Screen 11/04/2012 [facility] Patient Blood Type B Positive [address] [place] [address] [phone] Antibody Screen NEGATIVE Comp Metabolic Panel 11/04/2012 [facility] Sodium 134 mmol/L 133-[address] [place] [address] [phone] Potassium 3.8 mmol/L 3.5-5.0 Chloride 106 mmol/L 101-111 Co2 Carbon Dioxide 21.0 mmol/L Low 22-32 Anion Gap 7.0 mmol/L 2-11 Glucose 87 mg/dL 70-100 Blood Urea Nitrogen 2 mg/dL Low 6-24 Creatinine 0.50 mg/dL 0.50-1.40 BUN/Creatinine Ratio 4.0 Low 8-20 Calcium 8.5 mg/dL 8.1-9.9 Total Protein 5.4 g/dL Low 6.2-8.1 Albumin 2.3 g/dL Low 3.6-5.4 Globulin 3.1 g/dL 2-4 Albumin/Globulin Ratio 0.7 Low 1-3 Total Bilirubin 1.0 mg/dL 0.4-1.5 Alkaline Phosphatase 210 U/L High 30-110 Alt 12 U/L Low 14-54 Ast 21 U/L 12-42 Egfr Non- 144.9 >60 Egfr 186.3 >60 5 CBC No Diff 11/04/2012 [facility] White Blood 7.7 10^3/uL 4.8 -10.[address] [place] [address] [phone] Red Blood Count 4.09 10^6/uL 4.0-5.4 Hemoglobin 10.6 g/dL Low 12.0-16.0 Hematocrit 33 % Low 35-47 Mean Corpuscular Volume 80 fL 80-97 Mean Corpuscular Hemoglobin 26 pg Low 27-31 Mean Corpuscular HGB Conc 33 g/dL 31-36 Red Cell Distribution Width 14 % 10.5-15 Platelet Count 196 10^3/uL 150-450 Mean Platelet Volume 9 um3 7.4-10.4 Urine Culture And 11/04/2012 [facility] Urine (SEE NOTE) [address] [place] [address] [phone] Urine Microscopic 11/04/2012 [facility] Urine WBC 1+ (<10 None Seen [address] /hpf) [place] [address] [phone] Urine RBC None Seen None Seen Urine Epithelial Cells 2+ Squamous /hpf None Seen Bacteria Urine 1+ None Seen Urinalysis 11/04/2012 [facility] Urine Color Yellow [address] [place] [address] [phone] Urine Appearance Clear Urine Specific [place] 1.005 Low 1.010-1.030 Urine Esterase Trace Abnormal Negative Urine Nitrate Negative Negative Urine Urobilinogen Negative E.U./dL Negative Urine Protein Negative mg/dL Negative Urine pH 7.0 5-9 Urine Blood Negative Negative Urine Ketones Negative mg/dL Negative Urine Bilirubin Negative Negative Urine Glucose Negative mg/dL Negative Laboratory test 11/04/2012 [facility] Urine Random 10 mg/dL finding [address] [address] [phone] GC/Chlamydia 05/26/2012 [facility] GC/Chlamydia (SEE NOTE) 7 Amplified Rna [address] [place] [address] [phone] CBC No Diff 05/26/2012 [facility] White Blood 9.6 10^3/uL 4.8 -[address] Count .8 [place] [address] [phone] Red Blood Count 4.01 10^6/uL 4.0-5.4 Hemoglobin 10.5 g/dL Low 12.0-16.0 Hematocrit 32 % Low 35-47 Mean Corpuscular Volume 80 fL 80-97 Mean Corpuscular Hemoglobin 26 pg Low 27-31 Mean Corpuscular HGB Conc 33 g/dL 31-36 Red Cell Distribution Width 15 % 10.5-15 Platelet Count 268 10^3/uL 150-450 Mean Platelet Volume 9 um3 7.4-10.4 Type & Screen 05/26/2012 [facility] Patient Blood Type B Positive [address] [place] [address] [phone] Antibody Screen NEGATIVE Syphilis Screen 05/26/2012 [facility] Syphilis IgG TNP Nonreactive [address] [place], [place] [id number] [phone] RPR Nonreactive Nonreactive RPR Titer TNP Pediatric/Maternal YES Laboratory 05/26/2012 [facility] Hepatitis B Nonreactive Nonreactive 8 test finding [address] [place] [address] Antigen [phone] HIV 1 2 AB Nonreactive Nonreactive 9 Laboratory test 05/26/2012 [facility] Hemoglobin A1c 5.3 % Less than [address] 6.0 [place], [place] [id number] [phone] Rubella Screen Immune Immune Urine Culture And 05/25/2012 [facility] Urine Culture (SEE NOTE ) [address] [place], [place] [id number] [phone] Laboratory test 05/25/2012 [facility] Pathologist (SEE NOTE) [address] [place] [address] [phone] Manual Differential 05/25/2012 [facility] Neutrophil % 54 % 38-[address] [place], [place] [address] [phone] Lymphocytes % 20 % Low 25-47 Monocytes % 4 % 0-13 Eosinophils % 22 % High 0-6 Microcytosis 1+ Hypochromasia 1+ CBC Auto 05/25/2012 [facility] White Blood 12.1 10^3/uL High 4.8-10.[address] [place] [address] [phone] Red Blood Count 4.49 10^6/uL 4.0-5.4 Hemoglobin 11.9 g/dL Low 12.0-16.0 Hematocrit 35 % 35-47 Mean Corpuscular Volume 79 fL Low 80-97 Mean Corpuscular Hemoglobin 26 pg Low 27-31 Mean Corpuscular HGB Conc 34 g/dL 31-36 Red Cell Distribution Width 15 % 10.5-15 Platelet Count 311 10^3/uL 150-450 Mean Platelet Volume 8 um3 7.4-10.4 Abs Neutrophils 6.6 10^3/uL 1.5-7.7 Abs Lymphocytes 2.3 10^3/uL 1.0-4.8 Abs Monocytes 0.7 10^3/uL 0-0.8 Abs Eosinophils 2.4 10^3/uL High 0-0.6 Abs Basophils 0 10^3/uL 0-0.2 Abs Nucleated RBC 0 10^3/uL Comp Metabolic Panel 05/25/2012 [facility] Sodium 134 mmol/L 133-[address] [place] [address] [phone] Potassium 3.6 mmol/L 3.5-5.0 Chloride 105 mmol/L 101-111 Co2 Carbon Dioxide 20.0 mmol/L Low 22-32 Anion Gap 9.0 mmol/L 2-11 Glucose 83 mg/dL 70-100 Blood Urea Nitrogen 4 mg/dL Low 6-24 Creatinine 0.44 mg/dL Low 0.50-1.40 BUN/Creatinine Ratio 9.1 8-20 Calcium 9.3 mg/dL 8.1-9.9 Total Protein 6.2 g/dL 6.2-8.1 Albumin 3.2 g/dL Low 3.6-5.4 Globulin 3.0 g/dL 2-4 Albumin/Globulin Ratio 1.1 1-3 Total Bilirubin 0.7 mg/dL 0.4-1.5 Alkaline Phosphatase 110 U/L 30-110 Alt 28 U/L 14-54 Ast 22 U/L 12-42 Egfr Non- 167.9 >60 Egfr 215.9 >60 13 Urine Microscopic 05/25/2012 [facility] Urine WBC 2+ (>10-30 None Seen [address] /hpf) [place] [address] [phone] Urine RBC 1+ (<3 /hpf) None Seen Urine Mucus Present /lpf Absent Urine Epithelial Cells 2+ Squamous /hpf None Seen Bacteria Urine 2+ None Seen Urinalysis 05/25/2012 [facility] Urine Color Arleen [address] [place] [address] [phone] Urine Appearance Cloudy Urine Specific [place] 1.025 1.010-1.030 Urine Esterase 1+ Abnormal Negative Urine Nitrate Negative Negative Urine Urobilinogen Negative E.U./dL Negative Urine Protein Trace mg/dL Abnormal Negative Urine pH 6.5 5-9 Urine Blood Negative Negative Urine Ketones Trace mg/dL Abnormal Negative Urine Bilirubin Negative Negative Urine Glucose Negative mg/dL Negative Urinalysis 05/25/2012 [facility] Urine Color Yellow [address] [place] [address] [phone] Urine Appearance Clear Urine Specific [place] 1.013 1.010-1.030 Urine Esterase Negative Negative Urine Nitrate Negative Negative Urine Urobilinogen Negative E.U./dL Negative Urine Protein Negative mg/dL Negative Urine pH 6.5 5-9 Urine Blood Negative Negative Urine Ketones 2+ mg/dL Abnormal Negative Urine Bilirubin Negative Negative Urine Glucose Negative mg/dL Negative Laboratory test 12/26/2011 [facility] NEGATIVE Negative [address] (HCG) [place] [address] [phone] Urinalysis 12/26/2011 [facility] Ua Color YELLOW Yellow W/Microscopic [address] [place] [address] [phone] Appearance-Urine CLEAR Clear Specific [place]-Ur 1.006 Low 1.010-1.030 Esterase-Urine NEGATIVE Negative Nitrite NEGATIVE Negative [id number] NEGATIVE Negative Protein-Urine NEGATIVE Negative PH-Urine 7.5 5-9 Blood-Urine 1+ Abnormal Negative Ketones-Urine NEGATIVE Negative Bilirubin-Ur NEGATIVE Negative Glucose-Urine NEGATIVE Negative WBC-Urine 0-2 0-5 RBC-Urine 0-2 0-2 Epith Cells-Ur MODERATE None Bacteria-Urine TRACE None CBC Auto Diff 12/26/2011 [facility] White Blood 17.9 CUMM High 4.8-10.[address] [place] [address] [phone] Red Cell Count 4.69 CUMM 4.2-5.4 Hemoglobin 12.5 g/dL 12.0-16.0 Hematocrit 38 % 35-47 Mean Corpuscular Volume 82 um3 79-97 Mean Corpuscular Hemoglob 27 pg 27-31 Mean Corpuscular HGB Cone 33 g/dL 32-36 Redcell Distribution WDTH 15 % 10.5-15 Platelet Count 258 CUMM 150-450 Mean Platelet Volume 7.9 um3 7.4-10.4 Absolute Neutrophil Count 14.3 High 1.5-7.7 Manual Differential 12/26/2011 [facility] Polysegmented 74 % 38-[address] [place] [address] [phone] Band Neutrophil 2 % 0-8 Lymphocyte 10 % Low 25-47 Monocyte 5 % 0-13 Eosinophil 2 % 0-6 Atypical Lymph 7 % High 0-6 Anisocytosis SLIGHT Comp Metabolic Panel 12/26/2011 [facility] Sodium 137 mmol/L 135-145 [address] [place] [address] [phone] Potassium 3.7 mmol/L 3.5-5.0 Chloride 103 mmol/L 101-111 Co2 (Carbon Dioxide) 26.0 mmol/L 22-32 Anion Gap 8.0 mmol/L 2-11 16 Glucose 89 mg/dL 70-100 BUN 9 mg/dL 6-24 Creatinine 0.6 mg/dL 0.50-1.40 One Over Creatinine 1.66 BUN/Creatinine Ratio 15.0 8-20 Calcium 9.5 mg/dL 8.1-9.9 Total Protein 7.3 GM/DL 6.2-8.1 Albumin 4.2 GM/DL 3.6-5.4 Globulin 3.1 GM/DL 2-4 Albumin/Globulin Ratio 1.4 1-3 Bilirubin Total 1.1 mg/dL 0.4-1.5 17 Alkaline Phosphatase 53 U/L 30-110 Alt (SGPT) 15 U/L 14-54 Ast (Sgot) 20 U/L 12-42 eGFR Non- 117.4 > 60 eGFR 151.0 > 60 18 Laboratory test finding 12/26/2011 [facility] Lipase 28 U/L 22-51 [address] [place] [address] [phone] C Reactive Protein 0.7 mg/dL High Less Than 0.5 Comp Metabolic Panel 07/22/2011 [facility] Sodium 138 mmol/L 135-145 [address] [place] [address] [phone] Potassium 3.6 mmol/L 3.5-5.0 Chloride 103 mmol/L 101-111 Co2 (Carbon Dioxide) 25.0 mmol/L 22-32 Anion Gap 10.0 mmol/L 2-11 19 Glucose 105 mg/dL High 70-100 BUN 12 mg/dL 6-24 Creatinine 0.6 mg/dL 0.50-1.40 One Over Creatinine 1.66 BUN/Creatinine Ratio 20.0 8-20 Calcium 9.3 mg/dL 8.1-9.9 Total Protein 7.1 GM/DL 6.2-8.1 Albumin 4.2 GM/DL 3.6-5.4 Globulin 2.9 GM/DL 2-4 Albumin/Globulin Ratio 1.4 1-3 Bilirubin Total 1.1 mg/dL 0.4-1.5 20 Alkaline Phosphatase 62 U/L 30-110 Alt (SGPT) 16 U/L 14-54 Ast (Sgot) 20 U/L 12-42 eGFR Non- 118.2 > 60 eGFR 152.0 > 60 21 Manual 07/22/2011 [facility] Polysegmented 85 % High 38-[address] [place] [address] [phone] Lymphocyte 14 % Low 25-47 Monocyte 1 % 0-13 Absolute Neutrophil Count 7.5 Anisocytosis SLIGHT Poikilocytosis SLIGHT CBC Auto Diff 07/22/2011 [facility] White Blood 8.9 CUMM 4.8- 10.[address] [place] [address] [phone] Red Cell Count 4.91 CUMM 4.2-5.4 Hemoglobin 13.1 g/dL 12.0-16.0 Hematocrit 39 % 35-47 Mean Corpuscular Volume 78 um3 Low 79-97 Mean Corpuscular Hemoglob 27 pg 27-31 Mean Corpuscular HGB Cone 34 g/dL 32-36 Redcell Distribution WDTH 16 % High 10.5-15 Platelet Count 313 CUMM 150-450 Mean Platelet Volume 7.9 um3 7.4-10.4 22 Urinalysis W/Microscopic 07/22/2011 [facility] Ua Color YELLOW Yellow [address] [place] [address] [phone] Appearance-Urine CLEAR Clear Specific [place]-Ur 1.006 Low 1.010-1.030 Esterase-Urine NEGATIVE Negative Nitrite NEGATIVE Negative Jcbijjttuniy-Ry-ZKY NEGATIVE Negative Protein-Urine NEGATIVE Negative PH-Urine 6.0 5-9 Blood-Urine 3+ Abnormal Negative Ketones-Urine 1+ Abnormal Negative Bilirubin-Ur NEGATIVE Negative Glucose-Urine NEGATIVE Negative RBC-Urine 0-2 0-2 Epith Cells-Ur MANY None Laboratory test 08/02/2009 [facility] TSH 0.32 MIU/ML Low 0.34 -5.[address] [place] [address] [phone] Thyroxine Free 0.79 NG/ML 0.61-1.24 23 T3 Total 1.40 NG/ML 0.5-1.7 Thyrotropin Receptor (SEE NOTE) 24 CBC With 02/02/2009 [facility] White Blood 4.9 CUMM 4.8-10.8 Electronic Diff [address] [place] [address] [phone] Red Cell Count 4.69 CUMM 4.2-5.4 Hemoglobin 12.2 g/dL 12.0-16.0 Hematocrit 37 % 35-47 Mean Corpuscular Volume 79 um3 79-97 Mean Corpuscular Hemoglob 26 pg Low 27-31 Mean Corpuscular HGB Cone 33 g/dL 32-36 Redcell Distribution WDTH 15 % 10.5-15 Platelet Count 341 CUMM 150-450 Mean Platelet Volume 7.9 um3 7.4-10.4 Gran % 46.2 % 38-83 Lymph % 45.9 % 25-47 Mononuclear % 5.3 % 1-9 Eosinophil % 2.0 % 0-6 Basophil % 0.6 % 0-2 Abs Lymphs 2.2 1.0-4.8 Abs Mononuclear 0.3 0-0.8 Absolute Neutrophil Count 2.3 1.5-7.7 Abs Eosinophils 0.1 0-0.6 Abs Basophils 0 0-0.2 25 Laboratory test 02/02/2009 [facility] NEGATIVE Negative [address] (HCG) [place] [address] [phone] Vitamin B12 And 02/02/2009 [facility] Vitamin B12 336 pg/mL 180-914 Folate Serum [address] [place] [address] [phone] Folic Acid 15.0 NG/ML 2-16 Laboratory test 07/31/2008 [facility] Thyroxine Free 0.81 NG/ML 0.61-1.24 [address] [place] [address] [phone] T3 Total 0.97 NG/ML 0.5-1.7 TSH 0.35 MIU/ML 0.34-5.60 CBC With 07/21/2008 [facility] White Blood 4.5 CUMM Low 4.8- 10.8 Electronic Diff [address] [place] [address] [phone] Red Cell Count 4.19 CUMM Low 4.2-5.4 Hemoglobin 11.9 g/dL Low 12.0-16.0 Hematocrit 34 % Low 35-47 Mean Corpuscular Volume 82 um3 79-97 Mean Corpuscular Hemoglob 28 pg 27-31 Mean Corpuscular HGB Cone 35 g/dL 32-36 Redcell Distribution WDTH 14 % 10.5-15 Platelet Count 251 CUMM 150-450 Mean Platelet Volume 8.0 um3 7.4-10.4 Gran % 59.5 % 38-83 Lymph % 27.8 % 25-47 Mononuclear % 8.6 % 1-9 Eosinophil % 3.6 % 0-6 Basophil % 0.5 % 0-2 Abs Lymphs 1.2 1.0-4.8 Abs Mononuclear 0.4 0-0.8 Absolute Neutrophil Count 2.7 1.5-7.7 Abs Eosinophils 0.2 0-0.6 Abs Basophils 0 0-0.2 Laboratory test 07/21/2008 [facility] TSH 0.30 MIU/ML Low 0.34 -5.[address] [place] [address] [phone] Vitamin B12 And 07/21/2008 [facility] Vitamin B12 580 pg/mL 180-914 Folate Serum [address] [place] [address] [phone] Folic Acid > 20.0 NG/ML High 2-16 1 SEE RESULT BELOW Name: LEVJAYNE : [address]: Jan Diop MD Acct: [id number] Unit: [id number] AGE: 36 Location: [facility] Re11/24/17 SEX: F Status: REG REF SPEC: [id number] LIZBETH: 11/24/17-[address] [facility] [address]: Jan Diop MD REQ: [id number] RECD: 11/24/17270 STATUS: JONG FLORIAN DR: Addison Loyola MD _ ORDERED: TP IMAGE ANALYS, HPV/Thin Prep COMMENTS: [id number] Negative for Intraepithelial lesion or Malignancy Date Time Test Result Flag (u) Normal Range 11/24/17 8684 @ HPV RNA Negative Negative @ @ The high-risk HPV types detected by the assay include: 16, @ 18, 31, 33, 35, 39, 45, 51, 52, 56, 58, 59, 66, and 68. A. Ectocervical/Endocervical Specimen Adequacy: Satisfactory of evaluation Transformation zone component not identified Patient Information: HPV: High risk HPV RNA testing regardless of pap results. Actual Specimen Date: 11/24/17 Last Menstrual Date: 11/18/17 Date of Last Specimen: 11/14/16 Signed by and Reported on: RAHEEL Hunt (ASCP) [id number] This Pap test was evaluated with the assistance of the [employer] HealthPrep Test Imaging System. Due to cytologic findings at the chief librarian music department microscope, comprehensive manual rescreening by a Sharepoint Web Developer may be required. The Pap Smear is a screening test designed to aid in the detection of premalignant and malignant conditions of the uterine cervix. It is not a diagnostic procedure and should not be used as the sole means of detecting cervical cancer. Both false- positive and false- negative reports do occur. Depending on your risk status, a Pap smear should be obtained and evaluated every 1-3 years. END OF REPORT DEPARTMENT OF PATHOLOGY, [address] [place] [address] Faustino Jasso M.D. Director [facility] # [id number] 2 SEE RESULT BELOW Name: HAMLINJAYNE : [address]: Nila Barros MD Acct: [id number] Unit: [id number] AGE: 36 Location: [place] Re01/09/17 SEX: F Status: DUNIA STARKEY SPEC: [id number] LIZBETH: 01/09/[address] [facility] [address]: Nila Barros MD REQ: [id number] RECD: 01/09/17 STATUS: SOUT _ ORDERED: LEVEL 5 FINAL DIAGNOSIS Breast, left, lumpectomy: -- Benign breast tissue with non-proliferative fibrocystic change. -- No evidence of invasive or in situ carcinoma. PRE-OPERATIVE DIAGNOSIS Left breast lump. GROSS DESCRIPTION The specimen is received in formalin labeled, Left Breast Lump, and consists of a 5.5 x 4.5 x 3.0 cm yellow-pink ovoid rubbery unoriented portion of fibrofatty soft tissue with a 4.5 by up to 1.8 cm focally cauterized defect on one surface. The cut surface consists of yellow lobulated adipose tissue with moderate interspersed cardoza-pink rubbery lobulated to nodular well-defined fibrous tissue which abuts the inked margin. The specimen is inked, serially sectioned and physician representative sections are submitted in cassettes A through G. Signed (signature on file) Julia Ramírez MD 12/21 1320 END OF REPORT * ML = Testing performed at Main Lab DEPARTMENT OF PATHOLOGY, [address] [place] [address] Faustino Jasso M.D. Director [facility] # [id number] 3 SEE RESULT BELOW Name: JAYNE HAMLIN : [address]: Nila Barros MD Acct: [id number] Unit: [id number] AGE: 35 Location: [facility] Re12/16/16 SEX: F Status: REG REF SPEC: [id number] LIZBETH: 12/16/16-[address]: Nila Barros MD REQ: [id number] RECD: 12/16/16-1727 STATUS: JONG FLORIAN DR: Brook DIAZ C _ ORDERED: FNA INTERP RPT, LEVEL 4 COMMENTS: [id number] FINAL DIAGNOSIS Breast, left, fine needle aspiration: -- Atypical- cohesive cellular elements with moderate cytologic atypia noted. See comment. Comment: The aspirate smears are amply cellular and demonstrate predominantly cohesive epithelial elements arranged in small sheets and branch groups with associated myoepithelial elements. Bare bipolar nuclei are seen in the background. A few fragments however demonstrates significantly increased nuclear size, irregular nuclear contours and architectural disorder. While an invasive lesion is unlikely, an in situ neoplastic process cannot be excluded. This may be arising in a pre-existing benign process such as a fibroadenoma. Additional studies including core biopsy or conservative excision may be considered. A cell block was prepared in the evaluation of this specimen. Smears and cell block reveal similar findings. BREAST LEFT - LEFT BREAST MASS FINE NEEDLE ASPIRATION CONTINUED ON NEXT PAGE * ML = Testing performed at Main Lab DEPARTMENT OF PATHOLOGY, [address] [place] [address] Faustino Jasso M.D. Director [facility] # [id number] RUN DATE: 12/18/16 [facility] LAB LIVE PAGE 2 Patient: JAYNE HAMLIN [id number] (Continued) CLINICAL HISTORY (Continued) CLINICAL HISTORY Left breast mass. GROSS DESCRIPTION 2 Alcohol fixed slide(s) received from clinician and needle rinse in formalin for cell block. Signed (signature on file) Faustino Jasso MD 1308 END OF REPORT * ML = Testing performed at Main Lab DEPARTMENT OF PATHOLOGY, [address] [place] [address] Faustino Jasso M.D. Director [facility] # [id number] 4 If is still suspected, please repeat test after 48 to 72 hours. This test detects intact HCG only and is indicated for the early detection of . 5 Because ethnic data is not always readily available, this report includes an eGFR for both -Americans and non- Americans. The National Kidney Disease Education Program (NKDEP) does not endorse the use of the MDRD equation for patients that are not between the ages of 18 and 70, are , have extremes of body size, muscle mass, or nutritional status, or are non- or non-. According to the National Kidney Foundation, irrespective of diagnosis, the stage of the disease is based on the level of kidney function: Stage Description GFR(mL/min/1.73 m(2)) 1 Kidney damage with normal or decreased GFR 90 2 Kidney damage with mild decrease in GFR 60-89 3 Moderate decrease in GFR 30-59 4 Severe decrease in GFR 15-29 5 Kidney failure <15 (or dialysis) 6 RUN DATE: 11/07/12 [facility] LAB LIVE PAGE 1 RUN TIME: 1011 [address] [place], [place] [address] Specimen Inquiry Name: JAYNE HAMLIN : [address]: Jan Diop MD Acct: [id number] Unit: [id number] AGE: 31 Location: [facility] Re11/04/12 SEX: F Status: DEP REF SPEC: [id number] LIZBETH: 11/04/12-[address]: Jan Diop MD REQ: [id number] RECD: 11/04/12 STATUS: VLADIMIR FLORIAN DR: Addison Loyola MD _ SOURCE: URINE SPDESC: ORDERED: Urine Culture QUERIES: Urine Source: Random Procedure Result Verified Site Urine Culture Final 11/07/12- 1011 ML No Growth Day 2 (<1,000 CFU/mL) END OF REPORT * ML = Testing performed at Main Lab DEPARTMENT OF PATHOLOGY, [facility] [employer] [place], [place] [address] Faustino Jasso M.D. Director [facility] Permit #[id number] RUN DATE: 05/28/12 [facility] LAB LIVE PAGE 1 RUN TIME: 2571 [facility] [place], [place] [address] Specimen Inquiry Name: JAYNE HAMLIN : [address]: Brook Enriquez CNP Acct: [id number] Unit: [id number] AGE: 31 Location: [facility] Re05/26/12 SEX: F Status: REG REF SPEC: [id number] LIZBETH: 05/26/12-[address]: Brook Enriquez RN CIRCULATING REQ: [id number] RECD: 05/27/12 STATUS: COMP _ SOURCE: URINE SPDESC: ORDERED: GC/Chlam RNA QUERIES: Medent Number [id number] Procedure Result Verified Site Chlamydia Trachomatis RNA Final 05/28/12- 1412 ML NEGATIVE for Chlamydia trachomatis rRNA GC (N. gonorrhoeae) RNA Final 05/28/12- 1413 ML NEGATIVE for Neisseria gonorrhoeae rRNA A negative result does not preclude the presence of a C. trachomatis or N. gonorrhoeae infection because results are dependent on adequate specimen collection, absence of inhibitors, and sufficient rRNA to be detected. Test results may be affected by improper specimen collection, improper storage, technical error, or specimen mixup. Limitations of the Procedure: The Aptima Combo 2 Assay is not intended for the evaluation of suspected sexual abuse or for other medico-legal indications. For those patients for whom a false positive result may have adverse psychosocial impact, the [facility] recommends retesting by a method using an alternate technology. Therapeutic failure or success cannot be determined with the Aptima Combo 2 Assay since nucleic acid may persist following appropriate antimicrobial therapy. Results from the Aptima Combo 2 Assay should be interpreted in conjunction with other laboratory and clinical data available to the clinican. CONTINUED ON NEXT PAGE * ML = Testing performed at Main Lab DEPARTMENT OF PATHOLOGY, [facility] [employer] [place] [address] Faustino Jasso M.D. Director [facility] Permit #[id number] RUN DATE: 05/28/12 [facility] LAB LIVE PAGE 2 RUN TIME: 1412 [facility] [place], [place] [address] Specimen Inquiry Patient: JAYNE HAMLIN [id number] (Continued) Specimen: [id number] Collected: 05/26/12 Received: 05/27/12-1027 (Continued) Procedure Result Verified Site GC (N. gonorrhoeae) RNA Final (continued) 05/28/12- 1413 Performance characteristics for detecting C. trachomatis and N. gonorrhoeae are derived from high prevalence populations. Positive results in low prevalence populations should be interpreted carefully with the understanding that the likelihood of a false positive may be higher than a true positive. END OF REPORT * ML = Testing performed at Main Lab DEPARTMENT OF PATHOLOGY, [address] [place] [address] Faustino Jasso M.D. Director [facility] Permit #[id number] YES 9 It is recognized that currently available assays for the detection of antibodies to HIV-1 and/or HIV-2 may not detect all infected individuals. HIV antibodies may be undetectable in some stages of the infection and in some clinical conditions. The performance of this assay has not been established for populations of infants or children. Assayed by Chemiluminescence Microparticle Immunoassay on the Siemens Advia Centaur CP. Values obtained with different methods or kits cannot be used interchangeably.The diagnostic specificity of the ADVIA Centaur 1/O/2 Enhanced assay in the low risk population was 99.90% (6052/6058) with a 95% confidence interval of 99.78 to 99.96%. 10 Therapeutic target for the treatment of diabetes Mellitus patients is <7% HBA1C, and in selective patients <6.0%.Please refer to [place] [employer] Diabetic care guidelines for further information. 11 RUN DATE: 05/27/12 [facility] LAB LIVE PAGE 1 RUN TIME: [address] [place] [address] Specimen Inquiry Name: HAMLINJYANE : [address]: Ronald Raygoza Acct: [id number] Unit: [id number] AGE: 31 Location: ED Re05/25/12 SEX: F Status: DEP ER SPEC: [id number] LIZBETH: 05/25/[address]: Savana DIAZ REQ: [id number] RECD: 05/25/12 STATUS: VLADIMIR FLORIAN DR: Ronald Arteaga D Snowshoe MD _ SOURCE: URINE [facility]: ORDERED: Urine Culture Procedure Result Verified Site Urine Culture Final 05/27/12- 1101 ML Organism 1 NORMAL PARISA Gresham Count 1-10,000 (Few) CFU/ML END OF REPORT * ML = Testing performed at Main Lab DEPARTMENT OF PATHOLOGY, [address] [place] [address] Faustino Jasso M.D. Director [facility] Permit #[id number] REVIEWED BY FAUSTINO JASSO MD CBC and smear reviewed. Eosinophilia confirmed. May be allergy, drug or parasite related. CBC and smear reviewed. Leukocytosis consistent with acute illness and/or infection. 13 Because ethnic data is not always readily available, this report includes an eGFR for both -Americans and non- Americans. The National Kidney Disease Education Program (NKDEP) does not endorse the use of the MDRD equation for patients that are not between the ages of 18 and 70, are , have extremes of body size, muscle mass, or nutritional status, or are non- or non-. According to the National Kidney Foundation, irrespective of diagnosis, the stage of the disease is based on the level of kidney function: Stage Description GFR(mL/min/1.73 m(2)) 1 Kidney damage with normal or decreased GFR 90 2 Kidney damage with mild decrease in GFR 60-89 3 Moderate decrease in GFR 30-59 4 Severe decrease in GFR 15-29 5 Kidney failure <15 (or dialysis) 14 2+ (>10-30 /hpf) 15 If is still suspected, please repeat test after 48 to 72 hours. . This test detects intact HCG only and is indicated for the early detection of . 16 Anion gap measurement may be of limited value in the presence of any alkalosis, especially in a combined acid base disorder. . 17 A metabolite of Naproxen, O-desmethylnaproxen, has been shown to interfere with the Jendrassik-Pocahontas method for measuring total bilirubin. Samples from patients who have taken Naproxen have shown spurious elevation in total bilirubin levels. 18 Because ethnic data is not always readily available, this report includes an eGFR for both -Americans and non- Americans. The National Kidney Disease Education Program (NKDEP) does not endorse the use of the MDRD equation for patients that are not between the ages of 18 and 70, are , have extremes of body size, muscle mass, or nutritional status, or are non- or non-. According to the National Kidney Foundation, irrespective of diagnosis, the stage of the disease is based on the level of kidney function: Stage Description GFR(mL/min/1.73 m(2)) 1 Kidney damage with normal or decreased GFR 90 2 Kidney damage with mild decrease in GFR 60-89 3 Moderate decrease in GFR 30-59 4 Severe decrease in GFR 15-29 5 Kidney failure <15 (or dialysis) 19 Anion gap measurement may be of limited value in the presence of any alkalosis, especially in a combined acid base disorder. . 20 A metabolite of Naproxen, O-desmethylnaproxen, has been shown to interfere with the Jendrassik-Pocahontas method for measuring total bilirubin. Samples from patients who have taken Naproxen have shown spurious elevation in total bilirubin levels. 21 Because ethnic data is not always readily available, this report includes an eGFR for both -Americans and non- Americans. The National Kidney Disease Education Program (NKDEP) does not endorse the use of the MDRD equation for patients that are not between the ages of 18 and 70, are , have extremes of body size, muscle mass, or nutritional status, or are non- or non-. According to the National Kidney Foundation, irrespective of diagnosis, the stage of the disease is based on the level of kidney function: Stage Description GFR(mL/min/1.73 m(2)) 1 Kidney damage with normal or decreased GFR 90 2 Kidney damage with mild decrease in GFR 60-89 3 Moderate decrease in GFR 30-59 4 Severe decrease in GFR 15-29 5 Kidney failure <15 (or dialysis) 22 Lymphopenia % 23 PLEASE NOTE NEW REFERENCE RANGES. 24 TEST RESULT RETURNED FROM REFERENCE LABORATORY AND HARDCOPY SENT TO PHYSICIAN(S) OFFICE. 25 Lymphocytosis % 26 If is still suspected, please repeat test after 48 to 72 hours. . 27 PLEASE NOTE NEW REFERENCE RANGES. Procedures Date Code Description Status 01/09/2017 48709 Excise Breast Lesion Completed 12/16/2016 54010 Fine Needle Aspiration; W/O Imaging Guidance Completed 11/25/2016 22881 Ultrasound Breast Limited Completed 06/22/2013 96754 Inject Tendon Sheath Or Ligament Aponeurosis Eg Plantar Completed Fascia Encounters Type Date Location Provider Dx Diagnosis Office Visit 07/02/2018 Ana María Tristan, G43.019 Migraine w/o aura, 3:00p [facility] intractable, without status migrainosus Office Visit 01/01/2018 Ana María Tristan G43.019 Migraine w/o aura, 10:00a [facility] intractable, without status migrainosus Office Visit 06/26/2017 Ana María Tristan G43.019 Migraine w/o aura, 10:30a [facility] intractable, without status migrainosus M54.2 Cervicalgia Office Visit 12/16/2016 10:30a Surgical Nila Armand N63 Unspecified lump [facility] MD in breast Office Visit 11/25/2016 11:15a Surgical Nila Armand N63 Unspecified lump [facility] MD in breast Office Visit 11/21/2016 2:00p [place] Orlando Albert G43.019 Migraine w/ o [facility] M.D. aura, intractable, without status migrainosus M54.2 Cervicalgia Office Visit 07/21/2016 [place] Bety Tristan G43.019 Migraine w/o aura, 10:30a Neurologic Fabrizio intractable, [facility] without status migrainosus M54.2 Cervicalgia M62.838 Other muscle spasm Office Visit 05/12/2016 11:40a [facility] Internal Dick Mckeon, J01.90 Acute sinusitis, Medicine - Suite TAR WORKER unspecified R Office Visit 11/05/2015 1:00p [place] Orlando Albert G43.011 Migraine without [facility] M.D. aura, intractable, with status migrainosus Office Visit 09/24/2015 1:30p [place] Orlando Albert M54.2 Cervicalgia [facility] M.D. G43.119 Migraine with aura, intractable, without status migrainosus Office Visit 06/20/2015 3:15p [place] Orlando Tristan M54.2 Cervicalgia [facility] G43.119 Migraine with aura, intractable, without status migrainosus Office Visit 02/01/2015 9:30a [place] [facility] Bonnie G43.719 Chronic migraine [facility] Stefanie, TAR WORKER w/o aura, intractable, w/o stat migr Office Visit 12/06/2014 11:45a [place] Orlando Albert 346.71 Chronic Migraine [facility] Azalea W/Out AurEvan cardozaDMarlene W/Intractable W/O Migrainosus Office Visit 10/12/2014 12:00p [place] Orlando Albert 346.71 Chronic Migraine [facility] W/Out AurEvan cardozaDMarlene W/Intractable W/O Migrainosus 723.1 Cervicalgia Office Visit 08/02/2014 [place] Tr[place], 346.71 Chronic Migraine 11:45a Neurologic Fabrizio W/Out Aura, [facility] Staff Veterinarian W/Intractable W/O Migrainosus 723.1 Cervicalgia Office Visit 05/24/2014 [place] María Tristan, 346.71 Chronic Migraine 1:00p Neurologic M.D. W/Out Aura, Services Of Staff Veterinarian W/Intractable W/O Migrainosus 723.1 Cervicalgia Office Visit 01/05/2014 Ana María Tristan, 346.70 Chronic Migraine 1:00p Neurologic M.D. W/Out Aura W/Out Services Of Staff Veterinarian Mention Intractable Office Visit 10/12/2013 Ana María Tristan, 346.70 Chronic Migraine 2:15p Neurologic M.D. W/Out Aura W/Out Services Of Staff Veterinarian Mention Intractable Office Visit 06/22/2013 Orthopedic [facility] 727.04 Tenosynovitis 11:15a Services Of Nikole Radial Styloid Elier Dinh Office Visit 06/13/2013 Ana María Tristan, 346.91 Migraine Unspec W/ 1:00p Neurologic M.DMarlene Intractable W/O Services Of Staff Veterinarian Status Migrainosus Office Visit 12/13/2012 Ana María Tristan, 346.90 Migraine Unspec W/O 1:00p Neurologic M.DMarlene Intractable W/O Services Of Staff Veterinarian Status Migrainosus Office Visit 07/19/2012 An aMaría Shaw 346.91 Migraine Unspec W/ 2:00p Neurologic Fabrizio Cooper Intractable W/O Services Of Staff Veterinarian Status Migrainosus V22.2 State Incidental Normal Office Visit 04/30/2012 2:20p [facility] Internal Shira Raman, 307.81 Headache Tension Medicine - M.D. Ccmob Office Visit 01/13/2012 10:00a [facility] Internal Sadaf 346.10 Migraine Common Medicine - Bernard, N.P. W/O Intractable Ccmob W/O Status Migrainosus Office Visit 12/29/2011 9:50a [facility] Internal Addiosn Ma 346.10 Migraine Common Medicine - Nir, W/O Intractable Ccmob Fabrizio,FACP W/O Status Migrainosus 789.06 Pain Abdominal Epigastric Office Visit 12/18/2011 8:30a [facility] Internal Addison Ma 346.80 Migraine Other Medicine - Fabrizio Loyola,FACP W/O Intractable Ccmob W/O Status Migrainosus V04.81 Need For Prophylactic Vaccination & Inoculation/Influenza Office Visit 07/28/2011 11:30a Staff Veterinarian Internal Addison Ma 346.10 Migraine Common Medicine - Fabrizio Loyola,FACP W/O Intractable Ccmob W/O Status Migrainosus Office Visit 02/13/2011 9:30a DO Not Use Marybel Haley 346.80 Migraine Other Staff Veterinarian-Tyron Sr.Anil W/O Intractable W/O Status Migrainosus Office Visit 01/29/2011 9:40a DO Not Use Marybel Haley 346.80 Migraine Other Staff Veterinarian-Tyron Sr.nAil W/O Intractable W/O Status Migrainosus Office Visit 01/28/2010 3:20p DO Not Use Staff Veterinarian Aman Davila 465.9 URI Upper AT Redd Sweeney M.D. Respiratory Infections Acute Unspec Sites 346.80 Migraine Other W/O Intractable W/O Status Migrainosus Office Visit 08/02/2009 DO Not Use Staff Veterinarian Addison Ma 242.90 Thyrotoxicosis W/O 9:20a AT Redd Loyola M.D.,FACP Goiter Other Cause W/O Crisis Or Storm 477.0 Rhinitis Allergic Due To Pollen Office Visit 02/02/2009 11:00a DO Not Use Staff Veterinarian Addison Ma 789.00 Pain Abdominal AT Redd Loyola M.D.,FACP Unspec Site 473.9 Sinusitis Chronic Unspec Office Visit 05/02/2008 1:00p DO Not Use Staff Veterinarian Addison Ma 079.99 Viral Infection AT Redd Loyola M.D.,FACP Unspec 780.79 Malaise And Fatigue Other Office Visit 08/11/2007 2:30p DO Not Use Staff Veterinarian Yazmin Almonte PA 346.80 Migraine Other AT [facility] W/O Intractable W/O Status Migrainosus Plan of Treatment Future Appointment(s):03/18/2019 10:00 am - Bety Tristan M.D. at [facility]11/10/2018 - Bety Tristan M.D.G43.019 Migraine without aura, intractable, without status migrainosFollow up:4 [id number] Cervicalgia
[2018-12-23 07:56] VITALS: BP 121/86
--- NOTE | 2018-12-23 08:07 | UC ---
Throat Pain/Nasal Tod HPI - HPI Summary HPI Summary: CHIEF COMPLAINT and HPI: This is a 38-year-old female complaining of a severe sore throat. This condition began 2 days ago and has gotten worse. Since then. Description of Pain:significant pain described as 10 over 10 Location:. Throat Radiation: none Intensity: 10/10 Variation: worse over past two days. Patient can swallow, talk, take fluids. It is no complaint of shortness of breath. VITAL SIGNS & SaO2 REVIEWED. temperature is elevated at 101.2. The patient is tachycardic at 108. Respiratory rate is 16 and blood pressure is 121/86. NURSES NOTE REVIEWED. - History of Current Complaint Chief Complaint: UCRespiratory Stated Complaint: SORE THROAT FEVER Time Seen by Provider: 12/23/18 08:04 Hx Obtained From: Patient Hx Last Menstrual Period: control Pain Intensity: 10 - Allergies/Home Medications Allergies/Adverse Reactions: Allergies Allergy/AdvReac Type Severity Reaction Status Date / Time No Known Allergies Allergy Verified 12/23/18 07:56 Home Medications: Home Medications Control 12/23/18 [History] PMH/Surg Hx/FS Hx/Imm Hx - Additional Past Medical History Additional PMH: PAST MEDICAL HISTORY- CHRONIC and RECURRENT HEALTH PROBLEM LIST REVIEWED. Information relevant to present complaint: migraine. VISIT HISTORY REVIEWED: MEDICATIONS & ALLERGIES REVIEWED.on medication for migraines, otherwise negative. HYPERTENSION STATUS:no evidence of hypertension. FAMILY HISTORY: Positive for: diabetes Patient denies family history of: hypertension, cardiovascular disease, stroke, cancer. SOCIAL HISTORY: non-smoker, lives with children and boyfriend. 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 Previously Healthy: Yes - Surgical History Surgical History: Yes Surgery Procedure, Year, and Place: polyp removed from uterus x2 - [facility] - Family History Known Family History: Positive: Non-Contributory - Social History Alcohol Use: None Substance Use Type: None Smoking Status (MU): Never Smoked Tobacco Have You Smoked in the Last Year: No - Immunization History Most Recent Influenza Vaccination: 01/2012 Most Recent Tetanus Shot: 09/07/2012 Review of Systems All Other Systems Reviewed And Are Negative: Yes Constitutional: Positive: Fever ENT: Positive: Sore Throat Respiratory: Positive: Negative Cardiovascular: Positive: Negative Gastrointestinal: Positive: Negative Is Patient Immunocompromised?: No Physical Exam - Summary Physical Exam Summary: Appearance: The patient is well-appearing, is in no pain or distress, and is well-nourished. Eyes: Conjunctiva are clear. Pupils are equal and reactive to light and accommodation. Extra ocular muscle movement is intact. ENT: The hearing is grossly normal, and the TMs are normal. There is no muffled or hoarse voice. No stridor.there is mild swelling of the right peritonsillar pillar. On palpation with a Q-tip. This was not fluctuant. The throat is open. The uvula is midline. There was no exudate. The tonsils did not appear severely enlarged. There is mild anterior adenopathy. Neck: The neck is supple and there is no lymphadenopathy. Respiratory: The chest is non-tender to palpation and without crepitus. The lungs are clear, there are normal breath sounds, and there is no respiratory distress. No wheezes, rales or rhonchi. Cardiovascular: Heart sounds reveal a regular rate and rhythm. There are no clicks, rubs or murmurs. There are no carotid bruits or thrills. Circulation is grossly intact. Abdomen: The abdomen is soft and nontender. There is no organomegaly. Bowel sounds are present and within normal limits. No point tenderness at McBurneys point. No CVA tenderness. Musculoskeletal: Strength is intact. The patient moves all extremities. Neurological: The patient is alert. Motor and sensory are examination grossly intact. Speech is normal. Psychological: The patient displays age appropriate behavior, and is conversant. GCS=15. Skin: Negative for rashes. Triage Information Reviewed: Yes Vital Signs: Initial Vital Signs Temp 101.2 F 12/23/18 07:46 Pulse 108 12/23/18 07:46 Resp 16 12/23/18 07:46 BP 121/86 12/23/18 07:46 Pulse Ox 99 12/23/18 07:46 Throat Pain/Nasal Course/Dx - Course Course Of Treatment: Healthy 38-year-old female with a history of migraines but no significant constitutional illnesses. Reports 2 days of worsening sore throat. She has not noted change in voice or an inability to swallow fluids. She has been drinking less. She denies shortness of breath or dizziness. Examination shows a patient with aelevated temperature of 101.2 and a heart rate of 108. She complains of 10 over 10 pain. Examination shows mild anterior adenopathy. The cervical region as well as mild swelling in the right posterior tonsillar pillar. There is no evidence on palpation of peritonsillar abscess at this time. The patient's breathing and talking is normal. There is no trismus. The patient has no allergies and is on medication for high grade. Family history is noncontributory. Patient is a nonsmoker. Rapid strep was positive. My diagnosis is strep pharyngitis. She will be started on pen VK 500 mg twice a day for 10 days. she will also be given viscous lidocaine and dexamethasone for 2 days. She knows to call me in 2 days if she is not getting better. She will use tea and honey, warm water gargles and viscous lidocaine as well as ibuprofen and acetaminophen for comfort. She knows to go to the emergency department for worsening condition. - Differential Dx/Diagnosis Differential Diagnosis/HQI/PQRI: Epiglottitis, Laryngitis, Mononucleosis, Peritonsillar Abscess, Tonsillitis, URI Provider Diagnosis: Strep pharyngitis Discharge ED - Sign-Out/Discharge Documenting (check all that apply): Patient Departure All imaging exams completed and their final reports reviewed: No Studies - Discharge Plan Condition: Stable Disposition: HOME Prescriptions: Dexamethasone TAB* [Decadron TAB*] 4 mg PO DAILY #4 tab MDD 2 Lidocaine 2% VISCOUS* [Xylocaine 2% Viscous*] 15 ml SWISH SPIT Q6H #1 btl MDD 30 cc Penicillin VK TAB* [Penicillin VK 250 mg Tab*] 500 mg PO BID #20 tab Patient Education Materials: Strep Throat (ED) Referrals: Daniel Mena DO [Primary Care Provider] - Additional Instructions: Diagnosis: strep throat Treatment: PEN VK, TWICE DAY FOR 10 DAYS. Keep throat moistwith WITH LOZENGES; TEA AND HONEY. USE WARM WATER GARGLES 3- 4 TIMES A DAY. CEPASTAT LOZENGES FOR MODERATE PAIN. TYLENOL FOR DISCOMFORT. USEFUL HOME REMEDIES: WARM WATER GARGLES, WITH TSP OF SALT PER 8 OUNCES OF WATER, GARGLE FOR A FEW SECONDS AND SPIT OUT; GARGLE AND SPIT OUT; EVERY THREE HOURS. AND/OR: WARM WATER OR TEA, HONEY AND LEMON; 2-3 CUPS A DAY. FOLLOW UP IN 10 DAYS NEEDED. SOONER IF INCREASED PAIN, TEMPERATURE, DIFFICULTY BREATHING OR SWALLOWING. VISCOUS XYLOCAINE 2% #100CC SI ML WITH 15ML WATER GARGLES ONE TO THREE TIMES A DAY . GARGLE AND SPIT OUT. Dexamethasone tab 4 mg Label: two tablets daily FOR TWO DAYS Disp: 4 GO TO ED FOR ANY SHORTNESS OF BREATH OR INABILITY TO TAKE FLUIDS OR SWALLOW. - Billing Disposition and Condition Condition: STABLE Disposition: Home
[2018-12-23 08:27] LABS: Influenza A Molecular NEGATIVE (Negative); Influenza B Molecular NEGATIVE (Negative)
== END 2018-12-23 08:55 | disposition home or self-care (01) ==
LOC: UCEAST 07:42
DX: J02.0 Streptococcal pharyngitis (principal)
CPT/HCPCS: 87651; 99212; G0463

== ENCOUNTER 2019-07-20 08:59 | Inpatient (IN) | payer OTHER ==
--- OUTSIDE RECORDS SUMMARY | 2019-07-20 12:29 | XMS REPORT ---
:1980 Author Organization [facility] Care Team Providers Name Role Phone Unavailable Unavailable Unavailable Problems Condition Condition Condition Status Onset Resolution Last Treating Comments Name Details Category Date Date Treatment Clinician Date Cerebral Cerebral Diagnosis Active Klaudia infarction, infarction, 4-09 Wendela unspecified unspecified [id number] Allergies, Adverse Reactions, Alerts Allergy Allergy Status Severity Reaction(s) Onset Inactive Treating Comments Name Type Date Date Clinician Unknown None Active Unknown None Unknown No Known Allergies For This Patient Medications Ordered Filled Start Stop Current Ordering Indication Dosage Frequency Signature Comments Components Medication Medication Date Date Medication? Clinician (SIG) Name Name No Known No Known No None None None Medications Medications For This For This Patient Patient Procedures This patient has no known procedures. Results This patient has no known results.
--- OUTSIDE RECORDS SUMMARY | 2019-07-20 12:29 | XMS REPORT ---
:1980 Author Organization [facility] Care Team Providers Name Role Phone Unavailable Unavailable Unavailable Problems Condition Condition Condition Status Onset Resolution Last Treating Comments Name Details Category Date Date Treatment Clinician Date Cerebral Cerebral Diagnosis Active Klaudia infarction, infarction, 4-09 Wendela unspecified unspecified [id number] Allergies, Adverse Reactions, Alerts Allergy Allergy Status [...]
[2019-07-20] MEDS ORDERED: Senna TAB 8.6 mg* TAB PO PRN (13:59)
[2019-07-20] MEDS ORDERED: Acetaminophen TAB* 325 MG PO PRN (13:59)
--- NOTE | 2019-07-20 19:31 | HP ---
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. HISTORY OF PRESENT ILLNESS: Claudia Hamlin is a 38-year-old female. She had no known medical history. On , she was talking to her boyfriend on the telephone and told him she was feeling unwell. At roughly 6:15, her boyfriend suddenly did not hear her on the phone anymore. Her boyfriend called the patient's neighbor who went over to the patient's house and found her unresponsive. The neighbor then called 911. When EMS arrived on the scene, the patient would open her eyes, but not follow commands. She had a fingerstick blood sugar within normal limits and was brought to [facility]. She was found to have a left gaze preference and weakness in the right upper and lower extremities. A code benz was called. The patient was found to be nonverbal. A CAT scan of her brain was done, which showed a hyperdensity of the left MCA region concerning for thrombosis. She had a CTA of her head and neck which showed occlusion of the left internal carotid, but distal reconstitution and a distal left MCA M1 segment occlusion extending to the M2 segment. Her case was discussed via teleneurology with the stroke team at the [facility]. She was given tPA and put on the helicopter and flown to the [facility]. There, she underwent an embolectomy with TICI [address] [facility]. She was started on a tirofiban drip for prevention of a postprocedural thrombosis. The patient worked with Physical Therapy, Speech Therapy and Occupational Therapy. Initially, she was profoundly impaired and unable to follow commands; however, that improved where she had an expressive greater than receptive aphasia. Physically, she got stronger. She was felt to have PT/OT and speech needs. She is now being admitted for inpatient rehab, so that she might return to independent living. PAST MEDICAL HISTORY: Significant for migraine headaches. She was on occasional use of a triptan prior to admission. She had been using Excedrin and ibuprofen almost daily for her headaches. She was on contraception as well. She had an Implanon. CURRENT MEDICATIONS: Include: 1. Plavix 75 mg daily. 2. Lipitor 10 mg daily. 3. She is on Colace and Senokot as well as Tylenol and heparin for DVT prophylaxis. ALLERGIES: She has no known drug allergies. FAMILY HISTORY: Noncontributory. No one in the family has history of stroke. SOCIAL HISTORY: She has two 6-year-old twins. She is a nonsmoker, nondrinker and was working at [employer]. She lives in a one-story house with a basement. REVIEW OF SYSTEMS: The patient reports no current shortness of breath or chest pain. She is markedly aphasic. PHYSICAL EXAMINATION VITAL SIGNS: The patient's temperature is 98.5, blood pressure is 104/65, pulse 94, respirations 18. HEENT: Extraocular movements appear to be intact. NECK: Supple. LUNGS: Sounded clear to auscultation bilaterally. HEART: Sounds were regular. S1 and S2 audible. ABDOMEN: Soft and nontender. EXTREMITIES: She may have had slightly decreased tone on the right side. Peripheral pulses were intact. NEUROLOGIC: She was aphasic, awake, alert. She had an expressive greater than receptive aphasia. She did not speak one word with me. She was able to understand and follows simple one-step commands and answered questions appropriately. Muscle strength appeared to be 4+/5 on the right and 5/5 on the left. FUNCTIONAL EXAM: She transfers with supervision. ASSESSMENT: A 38-year-old with a left carotid dissection with left middle cerebral artery stroke, status post embolectomy. PLAN: Integrate her into a comprehensive and therapeutic rehab program with the following goals: 1. Physical Therapy will work with the patient. They are going to work on functional transfer training, ambulation training with a walker. 2. Occupational Therapy will see the patient, work on her activities of daily living including toileting and toilet transfers. 3. Speech Therapy will work with the patient with compensatory techniques for her expressive aphasia. 4. Heparin for DVT prophylaxis. 5. Plavix and Lipitor for secondary stroke prevention. 6. Her bowels will be regulated. 7. Cloth Sander will be closely involved to make sure that any services and equipment that the patient requires are in place prior to discharge. 8. Family training as appropriate. 9. Home with appropriate services. ESTIMATED LENGTH OF STAY: 7 to 10 days. [id number]/[facility] #: [id number] [facility]
[2019-07-20] MEDS: Docusate CAP* 100 MG PO SCH (20:53)
[2019-07-20] MEDS: Heparin VIAL(*) 5000 UNITS/ML VIAL (FIVE THOUSAND) SUBCUT SCH (20:54)
[2019-07-21] MEDS: Heparin VIAL(*) 5000 UNITS/ML VIAL (FIVE THOUSAND) SUBCUT SCH ×3 (05:58→21:40)
[2019-07-21] MEDS: Clopidogrel TAB* 75 MG PO SCH (08:13)
[2019-07-21] MEDS: Docusate CAP* 100 MG PO SCH ×2 (08:13→21:40)
[2019-07-21] MEDS: Atorvastatin* 10 MG TAB PO SCH (17:18)
--- NOTE | 2019-07-21 20:21 | PN ---
Progress Note Date of Service: 07/21/19 Note: JAYNE OHARA was visited. Therapy notes read and reviewed. Remains non verbal but understanding is pretty good. Did very well with therapy today. Current Medications: Active Medications Generic Name Dose Route Start Last Admin Trade Name Freq PRN Reason Stop Dose Admin Acetaminophen 650 mg 07/20/19 13:59 Tylenol Tab* PO Q6H PRN MILD PAIN or TEMP > 100.4 Atorvastatin Calcium 10 mg 07/21/19 17:00 07/21/19 17:18 Lipitor* PO 10 mg 1700 SARAH Administration Clopidogrel Bisulfate 75 mg 07/21/19 09:00 07/21/19 08:13 Plavix Tab* PO 75 mg DAILY SARAH Administration Docusate Sodium 100 mg 07/20/19 21:00 07/21/19 08:13 Colace Cap* PO 100 mg BID SARAH Administration Heparin Sodium (Porcine) 5,000 units 07/20/19 22:00 07/21/19 14:18 Heparin Vial(*) SUBCUT 5,000 units Q8HR SARAH Administration Senna 2 tab 07/20/19 13:59 Senokot 8.6 Mg Tab* PO BEDTIME PRN CONSTIPATION Vital Signs: Vital Signs Temp Pulse Resp BP Pulse Ox 98.8 F 86 17 108/69 99 07/21/19 06:15 07/21/19 06:15 07/21/19 06:15 07/21/19 06:15 07/21/19 06:15 Exam: GENERAL: No distress LUNGS: Clear HEART: Reg rhythm ABDOMEN: Soft, +BS EXTREMITIES: Normal tone. Pulses intact NEUROLOGIC: Expressive aphasia with no verbal output. Motor strength 4+/5 right handgrip, otherwise 5/5 Assessment/Plan: 1. Left Carotid Dissection, Left MCA CVA: S/P tPA, endovascular clot retrieval. 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 Plavix/Lipitor 2. Expressive Aphasia: CHILDREN'S SERVICE SUPERVISOR using ZULEYMA and other compensatory techniques 3. DVT Prophylaxis: Heparin 4. Advance Directives: Full code 07/21/19 20:19 07/21/19 20:21
[2019-07-22] MEDS: Heparin VIAL(*) 5000 UNITS/ML VIAL (FIVE THOUSAND) SUBCUT SCH ×3 (06:13→21:04)
[2019-07-22 07:02] LABS: ABS Eosinophils 0.2 10^3/ul (0-0.6); ABS Lymphocytes 2.4 10^3/ul (1.0-4.8); ABS Monocytes 0.6 10^3/ul (0-0.8); ABS Neutrophils 4.3 10^3/ul (1.5-7.7); Eosinophil % 2.4 %; Hematocrit 37 % (35-47); Hemoglobin 13.1 g/dL (12.0-16.0); Mean Corpuscular HGB Conc 35 g/dL (31-36); Mean Corpuscular Hemoglobin 29 pg (27-31); Mean Corpuscular Volume 82 fL (80-97); Mean Platelet Volume 7.9 fL (7.4-10.4); Platelet Count 259 10^3/uL (150-450); Red Blood Count 4.52 10^6 /uL (3.70-4.87); Red Cell Distribution Width 14 % (10-15); White Blood Count 7.5 10^3/uL (3.5-10.8)
[2019-07-22 07:11] LABS: Albumin/Globulin Ratio 1.4 (1-3); BUN/Creatinine Ratio 15.7 (8-20); Calcium 9.8 mg/dL (8.6-10.3); EGFR African American 113.9 (>60); EGFR Non-African American 94.2 (>60); Globulin 2.9 g/dL (2-4); Potassium 3.7 mmol/L (3.5-5.0); Total Bilirubin 0.9 mg/dL (0.2-1.0); Total Protein 6.9 g/dL (6.4-8.9)
[2019-07-22] MEDS: Clopidogrel TAB* 75 MG PO SCH (09:00)
[2019-07-22] MEDS: Docusate CAP* 100 MG PO SCH ×2 (09:00→21:05)
--- NOTE | 2019-07-22 12:49 | PMRUTEAM ---
PMRU: Team Meeting Current Status: Physical Therapy: Current Status Current Rolling Status Independent Current Supine <-> Sit Status Independent Current Sit <-> Stand Status Supervision/Touching Current Bed <-> Chair Status Supervision/Touching Transfer/Bed Mobility None Recommended Devices Current Picking Up Object Supervision/Touching Status Current Car Transfer Status Not attempted due to Current Ambulation Assistance Supervision/Touching Status Ambulation Assistive Device None Ambulation Conditions Two or More Turns,Uneven Surfaces Current Ambulation Distance 2x300' Current Wheelchair Propulsion Not Applicable Ability Status Current Stair Climbing Status Supervision/Touching Stair Climbing Assistive Left Railing,Right Railing Devices Number of Stairs Climbed 4 Current Curb Assistance Status Supervision/Touching Curb Assistive Devices Railings Objective Comments Pt's HR 103-109 after standing lunges and dynamic activities, given seated rest breaks as needed Occupational Therapy: Current Status Current Upper Body Dressing Setup or Clean-up Assist Status Current Lower Body Dressing Supervision/Touching Status Current Footwear Status Setup or Clean-up Assist Current Bathing Status Supervision/Touching Current Grooming Status Setup or Clean-up Assist Current Toileting Status Supervision/Touching Current Toilet Transfer Status Supervision/Touching Current Eating Status Independent Rec Therapy: Current Status Summary of Assessment and Pt was open to meet to discuss leisure interests Clinical Impression and involvement. Pt is unable to verbalize, but was able to answer yes or no questions by nodding her head or giving a thumbs up or down. Pt attempted to verbalize her thoughts and appeared slightly frustrated when she was not able to or not understood. Pt was able to identify a few of her leisure interests, and expressed interest in having coloring materials, which were provided to her. Pt is also open to continued leisure visits. Treatment Goals Pt will engage in leisure activities while on the unit, as tolerated Treatment Plan Provide Recreation Therapy services and encourage involvement. Social Work: Current Status Discharge Plan Stay with her sister, Rayna and receive outpatient speech therapy Potential for Family Training n/a Anticipated Discharge Home Destination Discharge With outpatient speech therapy and family support Speech: Current Status Assessment Patient is progressing as expected was alert and cooperative. Patient sustained attentiomn and interest for duration of 75 minute session. Patient repeated automatic sequences with 90% speech intelligibility. Goals: Physical Therapy: Goals Goals to Be Accomplished in ( 7-10 Days) Goal: Rolling Assistance Independent Goal Supine <-> Sit Status Independent Goal Sit <-> Stand Status Independent Goal Bed <-> Chair Status Independent Transfer/Bed Mobility None Recommended Devices Goal: Picking Up Object Independent Goal: Car Transfer Status Independent Goal: Ambulation Assistance Independent Ambulation Assistive Devices None Ambulation Distance (ft) 300 Goal: Wheelchair Propulsion Not Applicable Ability Goal: Stairs Assistance Independent Stairs Recommended Devices Two Rails Number of Stairs 2x12 Goal: Curb Assistance Independent Goal: Home Exercise Program Independent Assistance Occupational Therapy: Goals Goals to be Completed in (Days 3-5 days ) Goal Upper Body Dressing Independent Routine Goal Lower Body Dressing Independent Routine Goal Footwear Status Independent Goal Bathing Routine (OT) Independent Goal Grooming Routine Independent Goal Toilet Hygiene and Independent Clothing Management Routine Goal Toilet Transfer Routine Independent Goal Functional Transfers for Independent ADL Goal Feeding Routine Independent Goal Light Housekeeping Tasks Partial/Moderate Speech: Goals Speech Goal 1 Motor-speech Goal 1 Comments Motor-speech Goal, Long-Term : Pt will I'ly speak with 95% intelligibility Status: Goal established Motor-speech Goal, Short-Term #1: Pt will use compensatory strategies to increase speech intelligibility to 75% in spontaneous conversational speech, given minimal cueing. Status: Progressing as expected Motor-speech Goal, Short-Term #2: Pt will use compensatory articulation strategies to increase speech intelligibility to 50% in structured speech activities, given skilled instruction, Maximum cueing, and extra time. Status: Progressing as expected Given photos of facial muscles and expresions, direct models, and feedback by mirror, patient demonstrated 10% isolated volitional contraction of right side labial retraction, elevation and depression muslces; and 75% symmetrical spontaneous contraction with stimulated to perform authentic facial expresions, such as laughing, smilng, and frowning. PIER WORKER directed patient to initiate facial movements by natrual reactions and feeling emotions, then hold and try to prolong the actions intentionally. PIER WORKER presented direct models of automatic sequences , and patient imitated then continued independently with clear sustained voice and articulation: singing a familiar hymn, reciting a prayer, counting to 10, telling the days of the week. Patient did not say 9 or 10 clearly; PIER WORKER did not attempt to teach the patient to say these numbers in isolation. Instead, PIER WORKER provided direct models of shorter sequences using "backward chaining" so that she always ended well. PIER WORKER counted 8-9-10 and patientr repeated; then 7-8-9-10, etc until patient could clearly count 1,2,3,.., 8,9,10. Later, patient again had difficulty saying 9,10. Patient could not say "one" to initiate counting herself. PIER WORKER direct patient to show her roght index finger, then "kiss her finger" to prompt the W soud; patient then I'ly counted starting with " one." Speech Goal 2 Language Expression Speech Goal 2 Comments Language Expression Goals: Language Expression Goal, Long-Term: Pt will use conversational repair strategies to cooperatively find words in structured conversation, using available speech and alternative communication methods, 80% accuracy, given extra time, Independently. Status: Progressing as expected Language Expression Goal, Short-Term: Pt will use conversational repair strategies to cooperatively find words in structured language activities, using available speech and alternative communication methods, 75% accuracy, given skilled instruction, Moderate cueing, and . Status: Progressing as expected PIER WORKER presented an alphabet spelling baord. Patient used alphabetical order to find the first three letters of words, but could not find or recall more letters inb longer words. Given repeated direct models of PIER WORKER pointing, for example S-O-N- I-A, patient spelled her name but copied only the first three letters of other words such as her daughter's name Pravin. Patient named various days of the week, such as today, the first and last days of the workweek, and "hump" day, given direct model to start with Thursday. Patient "counted up" to the answer and stopped after saying the answer louder and nodding her head. PIER WORKER gave the patient a paragraph to read and explain if she understood. Patient appreaed to read and nodded yes and touched her chest as though to say "feelings." Patient was able to tell that it was about a hairdresser only when PIER WORKER asked what part of the body was it about patient touched her hair. After PIER WORKER modeled holding hands over ears, patient nodded in agreement but and simiated poorly to indicate that the paragraph made the point salons can be too loud. Patient completed the [place] Trail[place] Test, pats A and B within normal time. Patient required cueing as allowed to correct two skips in part A, but no cueing to complete the alternating trial in part B (1-A-2-B... 11-K-12-L) in under two minutes. Social Work: Goals Discharge Plan Stay with her sister, Rayna and receive outpatient speech therapy Potential for Family Training n/a Anticipated Discharge Home Destination Discharge With outpatient speech therapy and family support Care Plan: Care Plan ADL's - Improve/Maintain Start: 07/21/19 12:33 Freq: DAILY@0700,1900 Status: Active Target: 07/22/19 Protocol: Activity Type Activity Date Activity User E-Sign Co-Sign Detail Recorded Client Recorded Date Recorded By Document 07/21/19 12:33 [id number] 07/21/19 12:34 [id number] 07/21/19 12:33 PMRU Outcome: ADL's/ADL Transfers Orders/Interventions Occupational Therapy Evaluation & Treatment Device Yes Address Deficits Secondary To: L MCA CVA Patient to receive OT 5x/wk for 60-120 Therex min/day Self Care Management Group Therapy UE/LE ADL's with Assist Yes: Independent ADL Transfers with Assist Yes: Independent Toileting: Transfers,Clothing Management Yes: ,Hygeine w/Assist Independent Light Kitchen/Laundry w/Assist Yes: Independent Other Outcome/Goals Pt tolerates OT tx session well this date. Pt demonstrates no LOB throughout OT session. Will continue to work on R hand FMC and GMC, motor planning and R sided inattention. Progression Toward Outcome/Goals Progressing Communication-Improve/Maintain Start: 07/20/19 18:50 Freq: DAILY@0700,1900 Status: Active Target: 07/29/19 Protocol: Activity Type Activity Date Activity User E-Sign Co-Sign Detail Recorded Client Recorded Date Recorded By Document 07/22/19 12:15 [id number] 07/22/19 12:24 [id number] 07/22/19 12:15 PMRU Outcome: Communication/Cognitive Status Current Communication Outcome/Goals Other Other Communication Outcomes/Goals Motor-speech Goal, Long-Term : Pt will I' ly speak with 95% intelligibility Status: Goal established Motor-speech Goal, Short- Term #1: Pt will use compensatory strategies to increase speech intelligibility to 75% in spontaneous conversational speech, given minimal cueing. Status: Goal established Motor-speech Goal, Short- Term #2: Pt will use compensatory articulation strategies to increase speech intelligibility to 50% in structured speech activities, given skilled instruction, Maximum cueing, and extra time . Status: Goal established. Language Expression Goals: Language Expression Goal , Long-Term: Pt will use conversational repair strategies to cooperatively find words in structured conversation, using available speech and alternative communication methods, 80% accuracy, given extra time, Independently. Status: Goal established Language Expression Goal , Short-Term: Pt will use conversational repair strategies to cooperatively find words in structured language activities, using available speech and alternative communication methods, 75% accuracy, given skilled instruction, Moderate cueing , and . Status: Goal established Progression Toward Outcomes/Goals Progressing Discharge Planning - Improve/Maintain Start: 07/20/19 14:24 Freq: DAILY@0700,1900 Status: Active Target: 07/29/19 Protocol: Activity Type Activity Date Activity User E-Sign Co-Sign Detail Recorded Client Recorded Date Recorded By Document 07/22/19 12:15 [id number] 07/22/19 12:24 [id number] 07/22/19 12:15 PMRU Outcome: Discharge Planning Update Patient Family No Current Discharge Planning Outcome/Goals Demonstrates Understanding of Discharge Plan Progression Toward Outcome/Goals Progressing Education-Improve/Maintain Start: 07/20/19 14:24 Freq: DAILY@0700,1900 Status: Active Target: 07/29/19 Protocol: Activity Type Activity Date Activity User E-Sign Co-Sign Detail Recorded Client Recorded Date Recorded By Document 07/22/19 12:15 [id number] 07/22/19 12:24 [id number] 07/22/19 12:15 PMRU Outcome: Education Current Education Outcome/Goals Demonstrate/ Verbalize Understanding of Written Discharge Instructions Demonstrates Skills Encourage Questions Progression Toward Outcome/Goals Progressing Medication Administration Start: 07/20/19 14:24 Freq: DAILY@0700,1900 Status: Active Target: 07/29/19 Protocol: Activity Type Activity Date Activity User E-Sign Co-Sign Detail Recorded Client Recorded Date Recorded By Document 07/22/19 12:15 [id number] 07/22/19 12:24 [id number] 07/22/19 12:15 PMRU Outcome: Medication Administration Assess Patient Knowledge/Teach Med Yes Education for all Meds Current Wool Buyer Outcome/Goals Patient Independent with Medication Administration at Home Family/ Caregiver Administer Medications at Home Demonstrates Understanding Progression Towards Outcome/Goals Progressing Is Patient Going Home on Lovenox? No Neurological- Improve/Maintain Start: 07/20/19 14:24 Freq: DAILY@ Status: Active Target: 07/29/19 Protocol: Activity Type Activity Date Activity User E-Sign Co-Sign Detail Recorded Client Recorded Date Recorded By Document 07/22/19 12:15 [id number] 07/22/19 12:24 [id number] 07/22/19 12:15 PMRU Outcome: Neurological Weakness/Aphasia Aphasia Right Side Current Neurological Outcome/Goals Maintain/ Achieve Baseline Neurological Status Improve Neurological Status Prevent Avoidable Neurological Decline Demonstrate Knowledge of Prevention/Tx of Neuro Disorders/ Complication Progression Toward Outcome/Goals Progressing Rec Therapy- Improve/Maintain Start: 07/20/19 16:58 Freq: DAILY@ Status: Active Target: 07/26/19 Protocol: Activity Type Activity Date Activity User E-Sign Co-Sign Detail Recorded Client Recorded Date Recorded By Document 07/21/19 16:47 [id number] 07/21/19 16:48 [id number] 07/21/19 16:47 PMRU Outcome: Recreation Therapy Current Rec Ther Outcome/Goals Complete Rec Therapy Assessment Meet with Patient Regularly for Support Encourage Leisure Involvement Progression Toward Outcome/Goals Progressing Lack of Progression Comment Met with pt for a visit. Pt showed this advertising copywriter that she had worked on her word searches and coloring. Staff provided pt with more word searches. Outcome/Goals Met Complete Rec Therapy Assessment Safety- Improve/Maintain Start: 07/20/19 12:48 Freq: DAILY@ Status: Active Target: 07/29/19 Protocol: Activity Type Activity Date Activity User E-Sign Co-Sign Detail Recorded Client Recorded Date Recorded By Document 07/22/19 12:15 [id number] 07/22/19 12:24 [id number] 07/22/19 12:15 PMRU Outcome: Safety Current Safety Outcome/Goals Remain Free of Injury or Harm Cooperates with Safety Measures for Least Restrictive Environment Prevent Falls/ Injury Progression Toward Outcome/Goals Progressing Outcome/Goals Met Comment PA when OOB - Interdisciplinary Staff Present Geodetic Engineer/Social Work Staff Present: Annetta Arteaga LMSW Nursing Staff Present: Patricia Jordan RN OT Staff Present: Tania Whitaker PT Staff Present: Mary Young Rec Therapy Staff Present: Sivan Allen PIER WORKER Staff Present: Juan Sousa Medicine Note: Length of Stay: 1 day Anticipated Discharge Destination: Home Tentative Discharge Date: 07/23/2019 Discharged to: home
[2019-07-22] MEDS: Atorvastatin* 10 MG TAB PO SCH (16:37)
--- NOTE | 2019-07-22 16:55 | PN ---
Progress Note Date of Service: 07/22/19 Note: JAYNE OHARA was visited. Therapy notes read and reviewed. She was discussed ininterdisciplinary team rounds. Her motor skills are quickly improving and she was able to speak a few words with me today. She will be discharged tomorrow and do outpatient speech therapy, will follow up with [facility] or [facility] Current Medications: Active Medications Generic Name Dose Route Start Last Admin Trade Name Freq PRN Reason Stop Dose Admin Acetaminophen 650 mg 07/20/19 13:59 Tylenol Tab* PO Q6H PRN MILD PAIN or TEMP > 100.4 Atorvastatin Calcium 10 mg 07/21/19 17:00 07/22/19 16:37 Lipitor* PO 10 mg 1700 SARAH Administration Clopidogrel Bisulfate 75 mg 07/21/19 09:00 07/22/19 09:00 Plavix Tab* PO 75 mg DAILY SARAH Administration Docusate Sodium 100 mg 07/20/19 21:00 07/22/19 09:00 Colace Cap* PO 100 mg BID SARAH Administration Heparin Sodium (Porcine) 5,000 units 07/20/19 22:00 07/22/19 13:13 Heparin Vial(*) SUBCUT 5,000 units Q8HR SARAH Administration Senna 2 tab 07/20/19 13:59 Senokot 8.6 Mg Tab* PO BEDTIME PRN CONSTIPATION Vital Signs: Vital Signs Temp Pulse Resp BP Pulse Ox 98.1 F 78 14 109/70 100 07/22/19 06:25 07/22/19 06:25 07/22/19 06:25 07/22/19 06:25 07/22/19 08:00 Lab Results: Laboratory Results - last 24 hr 07/22/19 07/22/19 06:18 06:18 WBC 7.5 RBC 4.52 Hgb 13.1 Hct 37 MCV 82 MCH 29 MCHC 35 RDW 14 Plt Count 259 MPV 7.9 Neut % (Auto) 56.8 Lymph % (Auto) 32.0 Weld % (Auto) 8.3 Eos % (Auto) 2.4 Baso % (Auto) 0.5 Absolute Neuts (auto) 4.3 Absolute Lymphs (auto) 2.4 Absolute Monos (auto) 0.6 Absolute Eos (auto) 0.2 Absolute Basos (auto) 0.0 Absolute Nucleated RBC 0.0 Nucleated RBC % 0.0 Sodium 137 Potassium 3.7 Chloride 105 Carbon Dioxide 25 Anion Gap 7 BUN 11 Creatinine 0.70 Est GFR ( Amer) 113.9 Est GFR (Non-Af Amer) 94.2 BUN/Creatinine Ratio 15.7 Glucose 107 H Calcium 9.8 Total Bilirubin 0.90 AST 33 ALT 97 H Alkaline Phosphatase 71 Total Protein 6.9 Albumin 4.0 Globulin 2.9 Albumin/Globulin Ratio 1.4 Exam: GENERAL: No distress LUNGS: Clear HEART: Reg rhythm ABDOMEN: Soft, +BS EXTREMITIES: Normal tone. Pulses intact NEUROLOGIC: Expressive aphasia with some verbal output today. Motor strength 4+/ 5 right handgrip, otherwise 5/5 Assessment/Plan: 1. Left Carotid Dissection, Left MCA CVA: S/P tPA, endovascular clot retrieval. 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 Plavix/Lipitor 2. Expressive Aphasia: TAG MACHINE OPERATOR using ZULEYMA and other compensatory techniques 3. DVT Prophylaxis: Heparin 4. Advance Directives: Full code 07/22/19 16:56
[2019-07-23] MEDS: Heparin VIAL(*) 5000 UNITS/ML VIAL (FIVE THOUSAND) SUBCUT SCH (05:37)
[2019-07-23 06:04] VITALS: BP 108/84
[2019-07-23] MEDS: Docusate CAP* 100 MG PO SCH (10:27)
[2019-07-23] MEDS: Clopidogrel TAB* 75 MG PO SCH (10:27)
--- NOTE | 2019-07-23 14:01 | DS ---
CC: [facility]* DISCHARGE SUMMARY: DATE OF ADMISSION: 07/20/19 DATE OF DISCHARGE: 07/23/19 DISCHARGE DIAGNOSES: 1. 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 2. Expressive aphasia. 3. Left carotid dissection. 4. Migraine headaches. HISTORY OF PRESENT ILLNESS AND HOSPITAL COURSE: For complete history of the events leading up to her rehab stay, please see the history and physical dictated by me on 07/20/19. While on the rehab unit, the patient remained medically stable. She was maintained on Plavix for secondary stroke prevention. The patient worked with physical therapy and occupational therapy, and rapidly achieved an independence in her physical capabilities. She quickly achieved independence in transfers, ambulating greater than 500 feet without assistive devices and her activities of daily living including dressing, bathing , toileting, and toilet transfers. The patient worked with speech therapy. At the time of admission, the patient was not able to say one word due to her aphasia. By the time of discharge, she still had a [id number] expressive aphasia. She also had a severe apraxia of speech. She was noted to have made rapid progress with speech therapy moving from aphonia and no spoken language to able to complete sequences, recall words, and imitate some expressions and speech sounds. The patient was discharged home with her sister on 07/23/19. DISCHARGE DIET: Regular. DISPOSITION: Home. CONDITION AT DISCHARGE: Good. DISCHARGE MEDICATIONS: 1. Plavix 75 mg daily. 2. Lipitor 10 mg daily. FOLLOWUP: The patient will have outpatient speech therapy with Sayda Sears at [facility]. She will make an appointment on Thursday. The patient will follow up with her neurologist at [place] where her endovascular clot retrieval was done. She will follow up with Dr. Ignacio De Souza at the [facility], Neurosurgery, as well as Dr. Jevon Mitchell from the Department of Neurology. For her primary care, the patient believes she has a primary care doctor at [facility] in [place]; she was unable to name the provider. TIME SPENT: Time spent for this discharge was approximately 50 minutes, greater than half of this was spent with the patient and her sister explaining post- rehabilitation medications, therapies, and services. [id number]/[facility] #: [id number] [facility]
== END 2019-07-23 12:51 | disposition home or self-care (01) | DRG 56 ==
LOC: PMRU 12:25
PROVIDERS: ADMIT Physical Medicine & Rehabilitation; ATTEND Physical Medicine & Rehabilitation
PROC: F07Z5ZZ Bed Mobility Treatment (ICD-10-PCS; principal; 2019-07-20)
PROC: F07Z9ZZ Gait Training/Functional Ambulation Treatment (ICD-10-PCS; 2019-07-20)
PROC: F07Z8ZZ Transfer Training Treatment (ICD-10-PCS; 2019-07-20)
PROC: F07Z4ZZ Wheelchair Mobility Treatment (ICD-10-PCS; 2019-07-20)
PROC: F08Z0ZZ Bathing/Showering Techniques Treatment (ICD-10-PCS; 2019-07-20)
PROC: F08Z1ZZ Dressing Techniques Treatment (ICD-10-PCS; 2019-07-20)
PROC: F08Z3ZZ Feeding/Eating Treatment (ICD-10-PCS; 2019-07-20)
PROC: F08Z2ZZ Grooming/Personal Hygiene Treatment (ICD-10-PCS; 2019-07-20)
PROC: F06Z3ZZ Aphasia Treatment (ICD-10-PCS; 2019-07-20)
DX: I69.351 Hemiplegia and hemiparesis following cerebral infarction affecting right dominant side (principal); I77.71 Dissection of carotid artery; I69.320 Aphasia following cerebral infarction; G43.909 Migraine, unspecified, not intractable, without status migrainosus; Z79.899 Other long term (current) drug therapy
CPT/HCPCS: 36415; 80053; 85025; A9270-GY; J1644

== ENCOUNTER 2019-07-27 18:18 | Observation (INO) | payer OTHER ==
--- OUTSIDE RECORDS SUMMARY | 2019-07-27 18:33 | XMS REPORT ---
:1980 Author Organization [facility] Care Team Providers Name Role Phone Unavailable Unavailable Unavailable Problems Condition Condition Condition Status Onset Resolution Last Treating Comments Name Details Category Date Date Treatment Clinician Date Cerebral Cerebral Diagnosis Active Klaudia infarction, infarction, 4-09 Wendela unspecified unspecified [id number] Allergies, Adverse Reactions, Alerts Allergy Allergy Status [...]
--- OUTSIDE RECORDS SUMMARY | 2019-07-27 18:33 | XMS REPORT ---
:1980 Author Organization [facility] Care Team Providers Name Role Phone Unavailable Unavailable Unavailable Problems Condition Condition Condition Status Onset Resolution Last Treating Comments Name Details Category Date Date Treatment Clinician Date Cerebral Cerebral Diagnosis Active Klaudia infarction, infarction, 4-09 Wendela unspecified unspecified [id number] Allergies, Adverse Reactions, Alerts Allergy Allergy Status [...]
--- OUTSIDE RECORDS SUMMARY | 2019-07-27 18:33 | XMS REPORT ---
:1980 Author Organization [facility] Care Team Providers Name Role Phone Unavailable Unavailable Unavailable Problems Condition Condition Condition Status Onset Resolution Last Treating Comments Name Details Category Date Date Treatment Clinician Date Cerebral Cerebral Diagnosis Active Klaudia infarction, infarction, 4-09 Wendela unspecified unspecified [id number] Allergies, Adverse Reactions, Alerts Allergy Allergy Status [...]
--- NOTE | 2019-07-27 18:46 | ED ---
Neurological HPI - HPI Summary HPI Summary: 38 year old F presenting to [facility] accompanied by her sister with a chief complaint of right arm numbness since approximately 12:00 today. Per the patient 's sister the patient was agitated earlier today and had a headache, then reported arm numbness. The patient's sister also reports that the patient has been wheezing. The patient rates the pain 0/10 in severity. Symptoms aggravated by nothing. Symptoms alleviated by nothing. The patient had a CVA recently and had right arm weakness and aphasia as a result. At the time of discharge her right arm weakness had resolved and the patient was able to write yesterday. Patient denies any fever, chills, erythema of eyes, sore throat, chest pain, shortness of breath, cough, abdominal pain, nausea/vomiting, dysuria, hematuria , myalgia, edema, rash, or dizziness. Medication list reviewed. Allergy list reviewed. - History of Current Complaint Chief Complaint: EDNeurologicalDeficit Stated Complaint: RT ARM NUMBNESS PER PT Time Seen by Provider: 07/27/19 18:36 Hx Obtained From: Patient, Family/Drinking Water Technician Timing: Constant Pain Intensity: 0 Pain Scale Used: 0-10 Numeric Aggravating: Nothing Alleviating: Nothing Associated Signs and Symptoms: Positive: Negative - Chills, erythema (eyes), sore throat, cough, abdominal pain, dysuria, hematuria, myalgia, edema, rash, Headache. Negative: Dizziness, Nausea/Vomiting, Fever, Chest Pain, Shortness of Breath - Allergy/Home Medications Allergies/Adverse Reactions: Allergies Allergy/AdvReac Type Severity Reaction Status Date / Time No Known Allergies Allergy Verified 12/23/18 07:56 Home Medications: Home Medications tiZANidine TAB* [Zanaflex TAB*] 2 mg PO BEDTIME PRN 07/11/19 [History Confirmed 07/27/19] Atorvastatin* [Lipitor 10 MG*] 10 mg PO 1700 #30 tab 07/22/19 [Rx Confirmed ] Clopidogrel TAB* [Plavix TAB*] 75 mg PO DAILY #30 tab 07/22/19 [Rx Confirmed ] Acetaminophen TAB* [Tylenol TAB*] 650 mg PO Q6H PRN 07/27/19 [History Confirmed 07/27/19] Erenumab-Aooe [Aimovig Autoinjector] 70 mg SUBCUT MONTHLY 07/27/19 [History Confirmed 07/27/19] PMH/Surg Hx/FS Hx/Imm Hx Cardiovascular History: Denies: Hx Hypertension, Other Cardiovascular Problems/Disorders Respiratory History: Denies: Other Respiratory Problems/Disorders GI History: Denies: Other GI Disorders Sensory History: Denies: Hx Contacts or Glasses, Hx Hearing Aid Opthamlomology History: Denies: Hx Contacts or Glasses Neurological History: Reports: Hx CVA, Hx Migraine - FREQUENTLY Denies: Other Neuro Impairments/Disorders - Surgical History Surgical History: Yes Surgery Procedure, Year, and Place: polyp removed from uterus x2 - [facility] Hx Anesthesia Reactions: No Infectious Disease History: No Infectious Disease History: Denies: Traveled Outside the [place] in Last 30 Days - Family History Known Family History: Negative: Cardiac Disease, Hypertension, Diabetes - Social History Alcohol Use: None Substance Use Type: Reports: None Hx Tobacco Use: No Smoking Status (MU): Never Smoked Tobacco Have You Smoked in the Last Year: No Review of Systems Negative: Fever, Chills Negative: Erythema Negative: Sore Throat Negative: Chest Pain Positive: Other - Wheezing. Negative: Shortness Of Breath, Cough Negative: Abdominal Pain, Vomiting, Nausea Negative: dysuria, hematuria Negative: Myalgia, Edema Negative: Rash Neurological/Mental Status: Negative - Dizziness Positive: Headache, Numbness - Right arm Positive: Other - Agitation All Other Systems Reviewed And Are Negative: Yes Physical Exam - Summary Physical Exam Summary: Constitutional: Well-developed, Well-nourished, Alert. (-) Distressed Skin: Warm, Dry HENT: Normocephalic; Atraumatic Eyes: Conjunctiva normal Neck: Musculoskeletal ROM normal neck. (-) JVD, (-) Stridor, (-) Tracheal deviation Cardio: Rhythm regular, rate normal, Heart sounds normal; Intact distal pulses; The pedal pulses are 2+ and symmetric. Radial pulses are 2+ and symmetric. (-) Murmur Pulmonary/Chest wall: Effort normal. (-) Respiratory distress, (-) Wheezes, (-) Rales Abd: Soft. (-) Tenderness, (-) Distension, (-) Guarding, (-) Rebound Musculoskeletal: (-) Edema Lymph: (-) Cervical adenopathy Neuro: Right facial droop, her right arm is weak, her right last waxer is weak, she has expressive aphasia, she is mute but she appears to have intact receptive skills, GCS 15, NIH Stroke Scale 8. Psych: Mood and affect Normal Triage Information Reviewed: Yes Vital Signs On Initial Exam: Initial Vitals Temp Pulse Resp BP Pulse Ox 99.7 F 110 18 116/82 98 07/27/19 18:19 07/27/19 18:19 07/27/19 18:19 07/27/19 18:19 07/27/19 18:19 Vital Signs Reviewed: Yes - [place] Coma Scale Best Eye Response: 4 - Spontaneous Best Motor Response: 6 - Obeys Commands Best Verbal Response: 5 - Oriented Coma Scale Total: 15 Procedures - Sedation Patient Received Moderate/Deep Sedation with Procedure: No Diagnostics - Vital Signs Vital Signs Temp Pulse Resp BP Pulse Ox 07/27/19 18:19 99.7 F 110 18 116/82 98 - Laboratory Result Diagrams: 07/27/19 18:58 07/27/19 18:58 Lab Statement: Any lab studies that have been ordered have been reviewed, and results considered in the medical decision making process. - Radiology Chest x-ray Radiology Interpretation Completed By: ED Physician Summary of Radiographic Findings: No acute disease. ED physician has reviewed and interpreted this report. - CT Brain CT CT Interpretation Completed By: Radiologist Summary of CT Findings: New left posterior frontal lobe infarct with no hemorrhage or severe mass effect. ED physician has reviewed this report. Head CTA CT Interpretation Completed By: Radiologist Summary of CT Findings: 1. Left MCA territory infarct centered about the left frontal lobe. This results in only mild local mass effect with no midline shift. There is no hemorrhage. 2. There is improved opacification of the distal left M1 segment; however, the anterior division M2/M3 segments of the left MCA are diminutive. Question 1 2/M3 cutoff is annotated. 3. The left cervical ICAs recannulated. 4. There is irregularity in the proximal right V2 segment where a pseudoaneurysm as previous described. ED physician has reviewed this report. - EKG 18:55 Cardiac Rate: NL - 91 BPM EKG Rhythm: Sinus Rhythm Summary of EKG Findings: No STEMI. ED physician has reviewed and interpreted this EKG. NIH Scale - NIH Scale Level of Consciousness: Alert/Keenly Responsive Ask Patient the Month and His/Her Age: Neither Correct/Aphasic Ask Pt to Open/Close Eyes and Science Technician/Release Non-Paretic Hand: Both Correctly Best Gaze (Only Horizontal Eye Movement): Normal Visual Field Testing: No Visual Loss Facial Paresis-Pt to Smile & Close Eyes or Grimace Symmetry: Minor Paralysis Motor Function - Right Arm: No Drift-Holds 10 Seconds Motor Function - Left Arm: No Drift-Holds 10 Seconds Motor Function - Right Leg: No Drift-Holds 10 Seconds Motor Function - Left Leg: No Drift-Holds 10 Seconds Limb Ataxia-Must be out of Proportion to Weakness Present: Absent Sensory (Use Pinprick to Test Arms/Legs/Trunk/Face): Normal Best Language (Describe Picture, Name Items): Mute/Global Aphasia Dysarthria (Read Several Words): Unintelligible or Mute Extinction and Inattention: No Abnormality Total Score: 8 Course/Dx - Course Course Of Treatment: 38 year old F presenting to [facility] accompanied by her sister with a chief complaint of right arm numbness since approximately 12:00 today. Per the patient's sister the patient was agitated earlier today and had a headache, then reported arm numbness. The patient's sister also reports that the patient has been wheezing. Physical exam findings: Right facial droop, her right arm is weak, her right last waxer is weak, she has expressive aphasia, she is mute but she appears to have intact receptive skills, GCS 15, NIH Stroke Scale 8. An EKG reveals sinus rhythm rate of 91 BPM, no STEMI. CXR reveals, per ED physician, no acute disease. Brain CT reveals, per radiologist, new left posterior frontal lobe infarct with no hemorrhage or severe mass effect. Head CTA reveals, per radiologist, 1. Left MCA territory infarct centered about the left frontal lobe. This results in only mild local mass effect with no midline shift. There is no hemorrhage. 2. There is improved opacification of the distal left M1 segment; however, the anterior division M2/M3 segments of the left MCA are diminutive. Question 1 2/M3 cutoff is annotated. 3. The left cervical ICAs recannulated. 4. There is irregularity in the proximal right V2 segment where a pseudoaneurysm as previous described. Laboratory results with no significant abnormalities except for an INR of 1.16, and glucose of 108. In the ED course, the patient was given normal saline. We discussed patient care with Dr. Tellez at 19:56 who saw a new left MCA infarct. We discussed with Dr. Diez at 20:00 who recommends lowering the head of the bed, nasal cannula oxygen, fluid resuscitation, and observation. Patient will be admitted. The patient is agreeable with this plan. Assessment/Plan: I discussed Dr. Miller and Dr. Escamilla are concerned admitting this patient with Dr. Diez, stroke neurologist at [facility]. Per Dr. Diez, given the patient's extent of subacute infarct, and recent instrumentation, she is not eligible for further intervention at this time. He reports no indication for neuro ICU via transfe to [place], and that basic supportive care and our ICU should be adequate. See his dictated consult note. He also makes himself available via telephone consult as needed throughout the patient's hospitalization. Per Dr. Diez, the volume of infarct on imaging at [facility] is similar to volume today. He is aware of the M2 occlusion, however other intervention would not be offered in this patient's situation. - Diagnoses Provider Diagnoses: Cerebrovascular accident involving left middle cerebral artery territory - Physician Notifications Discussed Care Of Patient With: Peter Tellez Time Discussed With Above Provider: 19:56 Instructed by Provider To: Other - Discussed with Dr. Tellez who sees a new left MCA infarct. [20:00] Discussed with Dr. Diez who recommends lowering the head of the bed, nasal cannula oxygen, fluid resuscitation, and observation. - Critical Care Time Critical Care Time: 30-74 min - 60 minutes Critical Care Statement: Critical care time is provided exclusive of any time spent performing procedures. Discharge ED - Sign-Out/Discharge Documenting (check all that apply): Patient Departure - Discharge Plan Condition: Stable Disposition: ADMITTED TO [facility] Referrals: Daniel Mena DO [Primary Care Provider] - - Attestation Statements Document Initiated by Scribe: Yes Documenting Scribe: Deanna Dowling Provider For Whom Scribe is Documenting (Include Credential): Toni Barger MD Scribe Attestation: Deanna Damon, scribed for Toni Barger MD on 07/27/19 at 2046. Status of Scribe Document: Ready
[2019-07-27] MEDS ORDERED: NS 0.9% 1000 ML** 1,000 ML IV ONE ×2 (18:49→20:36)
[2019-07-27 19:05] LABS: ABS Eosinophils 0.3 10^3/ul (0-0.6); ABS Lymphocytes 2.2 10^3/ul (1.0-4.8); ABS Monocytes 0.5 10^3/ul (0-0.8); ABS Neutrophils 4.1 10^3/ul (1.5-7.7); Eosinophil % 3.9 %; Hematocrit 39 % (35-47); Hemoglobin 13.5 g/dL (12.0-16.0); Lymphocyte % 30.9 %; Mean Corpuscular HGB Conc 35 g/dL (31-36); Mean Corpuscular Hemoglobin 29 pg (27-31); Mean Corpuscular Volume 83 fL (80-97); Mean Platelet Volume 7.5 fL (7.4-10.4); Platelet Count 325 10^3/uL (150-450); Red Blood Count 4.67 10^6 /uL (3.70-4.87); Red Cell Distribution Width 14 % (10-15); White Blood Count 7.1 10^3/uL (3.5-10.8)
[2019-07-27 19:13] LABS: Activated Partial Thrombo Time 37.5 seconds (26.0-38.0); INR 1.16 (0.82-1.09)
[2019-07-27] MEDS ORDERED: Iodixanol* (CONTRAST) 320 MG/ML 100 ML SDV IV ONE (19:16)
[2019-07-27 19:23] LABS: Albumin 4.2 g/dL (3.2-5.2); Albumin/Globulin Ratio 1.6 (1-3); Calcium 9.5 mg/dL (8.6-10.3); EGFR African American 108.5 (>60); EGFR Non-African American 89.7 (>60); Globulin 2.7 g/dL (2-4); HDL Cholesterol 40.4 mg/dL; Potassium 3.8 mmol/L (3.5-5.0); Total Bilirubin 0.9 mg/dL (0.2-1.0); Total Protein 6.9 g/dL (6.4-8.9)
[2019-07-27 20:58] LABS: Urine Appearance Clear; Urine Bilirubin Negative (Negative); Urine Blood Negative (Negative); Urine Color Straw; Urine Glucose Negative (Negative); Urine Ketones Negative (Negative); Urine Nitrite Negative (Negative); Urine Protein Negative (Negative); Urine Urobilinogen Negative (Negative)
[2019-07-27 21:02] LABS: Urine Bacteria Absent (Absent); Urine Red Blood Cell Absent (Absent); Urine Squamous Epithelial Cell Present (Absent); Urine White Blood Cell Trace(0-5/hpf) (Absent)
[2019-07-27] MEDS ORDERED: Acetaminophen TAB* 325 MG PO PRN (21:35)
--- NOTE | 2019-07-27 23:12 | HP ---
CC: Dr. Daniel Mena* HISTORY AND PHYSICAL: DATE OF ADMISSION: 07/27/19 PRIMARY CARE PROVIDER: Dr. Mena. CHIEF COMPLAINT: Right-handed arm weakness. HISTORY OF PRESENT ILLNESS: Ms. Hamlin is a 38-year-old female who on 07/11/19 was flown to [facility] as she was found to have a left M1 occlusion and internal carotid artery occlusion. The patient underwent embolectomy of the M1 thrombus. She received TPA and was monitored in [place] for the left MCA CVA. The patient was discharged from [facility] to [facility] on 07/20/19. The patient was discharged from [facility] on 07/23/19 after she made significant gains in her speech and physical deficits. The patient had been improving since rehab. The patient currently is still markedly aphasic. She is able to make some sounds, but I am unable to make out any clear words. The patient's sister is able to provide additional history. Reportedly, when the patient got up this morning, initially she felt okay but then developed headache. Her sister noted her crying. She asked if she was feeling unwell, and the patient reportedly was able to get out that she felt off. She went to lie down. At approximately noon to 1 p.m., it was noted by her sister that she could not grab her phone with her right hand. This was new compared to even the day prior because she was at speech therapy on 07/26/19 and at that time she was able to sign her name. Because of the new right hand and arm weakness, she was brought to the emergency room. The patient's sister does note that while in the ER, it appeared this patient's mechanical engineering lecturer strength was better than when it was earlier in the day. PAST MEDICAL HISTORY: 1. Migraine. 2. CVA July 2019. PAST SURGICAL HISTORY: Left M1 embolectomy. MEDICATIONS: 1. Multivitamin 1 tab p.o. daily. 2. Tylenol 650 mg p.o. q.6 hours p.r.n. pain. 3. Aimovig 70 mg subcutaneous monthly. 4. Tizanidine 2 mg p.o. q.h.s. p.r.n. spasms. 5. Plavix 75 mg p.o. daily. 6. Lipitor 10 mg p.o. daily. ALLERGIES: No known drug allergies. FAMILY HISTORY: Mom and dad are both living and healthy. SOCIAL HISTORY: The patient does not smoke. She does not drink alcohol. She had been working at [employer]. She is not . She has 6-year-old twins. She indicates that her mom would be her healthcare proxy. REVIEW OF SYSTEMS: A complete 11-system review of systems was obtained. Pertinent positives and negatives are as per HPI and otherwise negative. PHYSICAL EXAMINATION GENERAL: The patient is a well-developed, young female, seen sitting up in the stretcher, in no acute distress. VITAL SIGNS: Blood pressure 117/87, pulse 86, respirations 16, temp 99.7, O2 sat 100% on room air. HEENT: Pupils are equal. Extraocular muscles are intact. Oropharynx is clear and moist. NECK: There is no submandibular, cervical, or supraclavicular adenopathy. PULMONARY: Lungs are clear to auscultation bilaterally. CARDIAC: Normal S1 and S2. Regular rate and rhythm. I do not appreciate any murmurs. ABDOMEN: Bowel sounds are present. Abdomen is soft, nontender, and nondistended. MUSCULOSKELETAL: There is no cyanosis or clubbing of the digits. NEUROLOGIC: The patient has significant expressive aphasia. She is unable to form any clear words. Right mechanical engineering lecturer strength is 4+/5. Proximal right arm strength is 4/5. Left upper extremity strength is 5/5. Bilateral lower extremity strength is 5/5. PSYCH: The patient is alert. She is oriented x3. Affect appears appropriate. SKIN: There is no evidence of rash. DIAGNOSTIC STUDIES/LAB DATA: WBC 7.1, hemoglobin 13.5, hematocrit 39, and platelets 325. INR 1.16. Sodium 138, potassium 3.8, chloride 106, CO2 26, BUN 8, creatinine 0.73, glucose 108, lactic acid 1.3, calcium 9.5. Bilirubin 0.9, AST 16, ALT 36, alk phos 66. Troponin 0. Albumin 4.2. Triglyceride 65, cholesterol 96, LDL 43, HDL 40. Urinalysis pending. EKG reveals normal sinus rhythm without any acute ST-T wave abnormalities. CT brain, new left posterior frontal lobe infarct with no hemorrhage or severe mass effect. This is new compared to CT done on 07/11/19. CTA head and neck, left MCA territory infarct centered about the left frontal lobe. This results in only mild local mass effect with no midline shift. There is no hemorrhage. There is improved opacification of the distal left M1 segment ; however, the anterior division M2/M3 segments of the left MCA are diminutive. The left cervical ICA is recannulated. There is irregularity in the proximal right V2 segment where a pseudoaneurysm is previously described. Chest x-ray to my interpretation is clear without evidence of infiltrate. ASSESSMENT AND PLAN: Ms. Hamlin is a 38-year-old female who unfortunately suffered left internal carotid artery occlusion and thrombus of the left M1 artery resulting in left middle cerebral artery cerebrovascular accident with resultant severe expressive aphasia and initially right-sided weakness, which had improved and now presents to the emergency room with complaints of right upper extremity weakness. 1. Right upper extremity weakness. Telestroke consultation was performed with Dr. Diez from [facility]. He reviewed imaging from [facility] today and compared this with imaging from 07/13/19 and the volume of stroke is essentially unchanged. The patient is not a tissue plasminogen activator candidate. She is not a candidate for any interventional procedure as no thrombus is noted. He recommends admission to the hospital for continued evaluation. It was felt that her symptoms likely represent a recrudescence of her prior stroke. She will be on bedrest x24 hours with the head of the bed elevated to only 15 degrees. She will be receiving normal saline at 100 mL/ hour. She will have neuro checks every 4 hours. Neurology consultation has been requested. She will continue on Plavix and Lipitor. It does sound as if from her sister that there has been some improvement in the mechanical engineering lecturer strength compared to earlier in the day. 2. DVT prophylaxis. According to the Adult Thrombosis Prophylaxis Risk Factor Assessment Guide, the patient has a total risk factor score of 6, making her the highest risk. Heparin 5000 units subcutaneous q.8 hours will be utilized as DVT prophylaxis. 3. Code status is full. TIME SPENT: Sixty-five minutes was spent admitting this patient of which greater than half was spent [id number] with the patient or speaking on the phone to the patient's sister, reviewing her history and performing physical exam. [id number]/[facility] #: [id number] [id number]
[2019-07-28] MEDS: NS 0.9% 1000 ML** 1,000 ML IV SCH ×2 (00:49→10:22)
[2019-07-28] MEDS: Heparin VIAL(*) 5000 UNITS/ML VIAL (FIVE THOUSAND) SUBCUT SCH ×3 (00:49→16:54)
[2019-07-28 06:30] VITALS: BP 101/71
[2019-07-28] MEDS ORDERED: Multivitamins/Minerals TAB PO SCH (09:00)
[2019-07-28] MEDS ORDERED: Clopidogrel TAB* 75 MG PO SCH (09:00)
--- NOTE | 2019-07-28 10:51 | PN ---
Subjective Date of Service: 08/04/19 Interval History: Patient still had right sided weakness and right facial droop, expressive aphasia unchanged from her baseline. She stated her headache was improved significantly today. She had migraine with aura, her headache yesterday was also preceded by aura, then she developed right side weakness. She is compliant to plavix, on OCP. Overnight, telemetry normal. Objective Active Medications: Acetaminophen (Tylenol Tab*) 650 mg PO Q6H PRN PRN Reason: PAIN - MODERATE Atorvastatin Calcium (Lipitor*) 10 mg PO 1700 [facility] Clopidogrel Bisulfate (Plavix Tab*) 75 mg PO DAILY [facility] Last Admin: 07/28/19 09:53 Dose: 75 mg Heparin Sodium (Porcine) (Heparin Vial(*)) 5,000 units SUBCUT Q8HR [facility] Last Admin: 07/28/19 06:33 Dose: 5,000 units Sodium Chloride (Ns 0.9% 1000 Ml) 1,000 mls @ 100 mls/hr IV PER RATE [facility] Last Admin: 07/28/19 10:22 Dose: 100 mls/hr Multivitamins/Minerals (Theragran/Minerals Tab*) 1 tab PO DAILY [facility] Last Admin: 07/28/19 09:53 Dose: 1 tab Vital Signs - 8 hr 07/28/19 07/28/19 07/28/19 03:00 03:24 04:00 Temperature 98.3 F Pulse Rate 64 68 Respiratory 13 13 Rate Blood Pressure 102/71 102/72 (mmHg) O2 Sat by Pulse 100 99 Oximetry 07/28/19 07/28/19 07/28/19 05:00 06:00 07:51 Temperature 97.6 F Pulse Rate 67 68 Respiratory 14 13 Rate Blood Pressure 101/70 101/71 (mmHg) O2 Sat by Pulse 99 99 Oximetry Oxygen Devices in Use Now: None Exam: Constitutional: awake, alert, tearful Head: normocephalic, atraumatic CVS: normal rate, regular, no murmur Chest/Resp: bilateral air entry, no rhales, no wheeze, no rhonchi Abdomen/GI: soft, nontender, nondistended, BS+ Ext/Msk: warm, pulses+, no edema Skin: intact, warm Neuro: awake, alert expressive dysphgia, able to understand commands right facial droop right UL and LL decreased muscle strength hyperreflexia suspicious possible right babinski Psych: normal affect Result Diagrams: 07/27/19 18:58 07/27/19 18:58 Assess/Plan/Problems-Billing Assessment: Claudia Hamlin is a 38 yo female with migraine and history of recent large left MCA infarct s/p TPA and embolectomy with residual aphasia, presented to hospital for right sided weakness afer migraine headache, CTA no new findings seen. - Patient Problems (1) Right hemiparesis Current Visit: Yes Status: Acute Code(s): G81.91 - HEMIPLEGIA, UNSPECIFIED AFFECTING RIGHT DOMINANT SIDE SNOMED Code(s): 607151984 Comment: - unclear cause - wax and weaning from previous stroke, also could be hemiplegic migraine. - awaiting MRI - continue plavix for second prevention - iv ns to keep permissive HTN, allow SBP up to 180mmhg - (2) History of stroke Current Visit: Yes Status: Acute Code(s): Z86.73 - PRSNL HX OF TIA (TIA), AND CEREB INFRC W/O RESID DEFICITS SNOMED Code(s): 584797250 Comment: recent stroke in July left carotid dissection leading to large left MCA stroke s/p TPI and embolectomy (3) Migraine aura without headache (migraine equivalents) Current Visit: Yes Status: Acute Code(s): G43.109 - MIGRAINE WITH AURA, NOT INTRACTABLE, W/O STATUS MIGRAINOSUS SNOMED Code(s): 447537944 Comment: history on Aimovig for prevention resolving now Status and Disposition: will stay in ICU unless she needs overnight.
--- NOTE | 2019-07-28 11:10 | CONS ---
CC: Dr. Mena CONSULTATION REPORT: DATE OF CONSULTATION: 07/28/19 PRIMARY CARE PHYSICIAN: Dr. Mena. REASON FOR CONSULTATION: Re-emergence of right hand weakness after a stroke. HISTORY OF PRESENT ILLNESS: Ms. Hamlin is a 38-year-old female who denies any major past medical history other than migraines. Unfortunately, she is unable to communicate, she is currently aphasic. On 07/11/19, she came into the hospital acutely aphasic and with right-sided weakness, and found to have left carotid dissection and occlusion as well as found to have aleft M1 occlusion and was shifted to [facility]. She underwent embolectomy and did well there, although she had residual right-sided weakness and aphasia, was initially sent to rehab there and then was sent to rehab here and was discharged home on 07/23/19 improving. She was seeing a speech therapist, seeing physical therapy; she was starting to be able to make some speech and sounds and has been able to use her right hand fairly well. She has got some problems with fine motor movements. We do not have the workup from [place] at this point; it is unclear why she had a stroke. She denies any history of hypercoagulable state, no miscarriages. She was apparently on control at the time of the stroke. She has no prior history of stroke. There is no family history of early strokes. She came home from the [facility] at [place] on Plavix with 75 mg and Lipitor 10 mg. She apparently has been put on Aimovig , one of the new CGRP antagonists for her history of migraine headaches. Yesterday, her sister noticed that she seemed to be having some difficulty making out words, whereas before she was able to make some words. She was complaining of a headache, which she does get; this was frontal in nature; her sister noted that she was crying and she seemed to be having more trouble using her right arm. She took a nap, but when she got up she was unable to grab her phone and the sister was worried that she had declined and so brought her to the hospital. In the hospital here, she did have a brain CT scan, which showed no evidence of any hemorrhage. There is a new left posterior frontal lobe infarct with no hemorrhage or severe mass effect, although it is unclear whether this represents the evolution of her stroke that she initially came in with. Her head CTA done yesterday showed the left MCA territory infarct centered about the left frontal lobe and results in mild local mass effect with no midline shift. No hemorrhage is noted. Improved opacification of the distal left M1 segment; however, the anterior division of M2 and M3 segments of the left MCA are diminutive. Questionable M3 cutoff is annotated. Left cervical ICA has recanalized. 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 [facility] was consulted and they reviewed the films. Dr. Diez felt like that the volume of the infarct appeared to be about the same. There was more concern about recrudescence of her symptoms rather than new stroke, although she was admitted overnight with a plan to get an MRI to look for any new stroke. Overnight, she seems to have done well, her speech seems to be returning. She has got good strength in her right hand at this point and she appears to be returning back to her pre-admission baseline. There has been no reported incidences overnight, no new symptoms reported. Again, she has a difficult time communicating, but she is able to completely understand, follow all commands and nod yes or no to questions. PAST MEDICAL HISTORY: As noted above. PAST SURGICAL HISTORY: Includes the left M1 embolectomy. MEDICATIONS AT HOME: Include: 1. Multivitamin. 2. Tylenol. 3. Aimovig 70 mg subcutaneously every month. 4. Tizanidine 2 mg q.h.s. p.r.n. spasms. 5. Plavix 75 mg daily. 6. Lipitor 10 mg daily. ALLERGIES: No known drug allergies. FAMILY HISTORY: As noted above, there is no family history of strokes, heart attacks, or bleeding disorders that she is aware of. SOCIAL HISTORY: She has a twin boys, 6 years old. She works at [employer]. She denies any tobacco or alcohol use. Denies any drug use. REVIEW OF SYSTEMS: Review of systems was difficult to complete, but basically the patient denies any current headache. No recent fevers, chills, nausea, vomiting, diarrhea, or constipation. No new focal numbness, tingling, or weakness. No muscle aches or pains. No falls. She has otherwise been in her usual state of health. PHYSICAL EXAMINATION: Vital Signs: On examination, temperature is 97.6, heart rate of 67, respiratory rate of 13, O2 saturation 99% on room air, blood pressure 101/70 to 101/71. General: She is a well-nourished, well-developed female, in no acute distress. She is pleasant, well dressed, well groomed. HEENT: She is normocephalic, atraumatic. Sclerae are anicteric. Mucous membranes are moist. Oropharynx is clear. Nares are patent. Neck is supple. No thyromegaly. No carotid bruits. No meningismus. Chest: Clear to auscultation bilaterally. Cardiovascular: Regular rate and rhythm without murmurs. Abdomen: Nontender, nondistended. Extremities: There is no clubbing , cyanosis, or edema. Her skin is warm and dry without lesions. Neurologic Exam: She is awake, alert. Orientation is difficult, but she appears to be fully oriented, although she is unable to express this. Her speech is aphasic, expressive only. She is able to nod yes or no to all questions appropriately. She follows all commands. Cranial Nerves: Pupils are equally round and reactive to light and accommodation. Extraocular muscles appear full and intact with no nystagmus. There is no reported diplopia or visual field loss. No ptosis is appreciated. Facial sensation she states is intact to light touch throughout. She does have a right lower facial droop that has been persistent. Palate raises symmetrically. Tongue is midline. Hearing is intact. Motor Exam: She spontaneously moves all extremities antigravity. Her tone is good. There is no increased tone in the right upper or lower extremity. She has good strength 5/5 in the upper and lower extremity. On the right, she had a very subtle drift in the right upper extremity. Pumper Gauger are good 5/5 bilaterally. She does not appear to have any major focal deficits at this time. Sensation is grossly intact to light touch and pinprick. She had no extinguishing to double simultaneous stimulation. [id number] and rapid alternating movements were a little slower on the right hand especially finger tap, but there is no resting tremor, no action or postural tremor appreciated. Again, tone was normal. There is no bradykinesia or cogwheeling. DTRs are 2+ and symmetric at the biceps, triceps, brachioradialis, patella, 1+ at the ankles and equivocal Babinski's. Gait was not tested, but she has been ambulating without difficulty. DIAGNOSTIC STUDIES/LAB DATA: Lab work includes a normal CBC with diff with an INR of 1.16. Normal chemistry except for glucose of 108, triglycerides 65, cholesterol 96, LDL 43, HDL 40. Urine showed trace leukocyte esterase, squamous epithelial cells. The imaging is as noted above. ASSESSMENT AND PLAN: Ms. Hamlin is a 38-year-old female with a history of migraines. 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 She presented with acute onset of right- sided weakness and aphasia. She was transferred to [place] where she underwent a left M1 embolectomy. She also had a left internal carotid artery occlusion which has recanalized. She has been doing well status post PM and R and recovering, working with speech therapy and occupational and physical therapy and doing well, regaining some speech when yesterday her sister noted that she was complaining of a headache and then subsequently seemed to be having a harder time with her limited speech and seemed to be having a harder time using her right hand. Based on that, she was brought to the hospital. CT scan was done, which showed no new hemorrhage and a CT angiogram did show recanalization. I just received some information from [place]. It appears that she did have a left carotid dissection leading to a large left middle cerebral artery stroke. She did get tPA at [facility] and then subsequently had the embolectomy at [facility]. As noted, Dr. Diez saw her. Apparently, echocardiogram was done. . At this point, [place] felt like there was no increased volume of her stroke, although I do not have the old imaging to compare. We are going to get an MRI just to make sure there has been no major extension, there does not appear to be any hemorrhage. I would continue her current treatment plan with the Plavix and Lipitor. She can use the Aimovig for her migraine headaches as this should not have any major effects on the stroke. I suspect this is recrudescence of her old symptoms now that they are resolving, but we will see what the MRI shows and make further recommendations at that time. Other considerations would be a complicated migraine (she did have a headache at the time) vs. seizure with a mild Te's ( no seizure activity was reported) I would keep her blood pressures in the normotensive range, would not let them get too high, but would avoid severe precipitous drops or hypotension to avoid any perfusion problems. On the other hand with a history of an internal carotid artery dissection, would want to avoid any hypertension. No changes to her regimen for now. She can continue her Aimovig for migraine prevention which she notes has worked well. Suspicion for seizures is very low and I do not think we need additional workup at this time. I will continue to follow her and make further recommendations as necessary. If her MRI shows no evidence of any major changes and she is back to normal, I think that she can go home on her scheduled regimen of medications and follow up with me in clinic. She also has a follow up appointment in [place] as well. Thank you for the opportunity to participate in the care of this very interesting patient. [id number]/[facility] #: [id number] MAGALI
--- NOTE | 2019-07-28 13:50 | DS ---
Resident Discharge Summary Discharge Summary: Date of Admission: 07/27/19 Date of Discharge: 07/28/19 Admitting MD: Mayra Escamilla DO Attending MD: Jonnie Kaufman MD Primary Care Physician: Daniel Mena DO CC: Leandro Miller Home Medications Medication Instructions Recorded Confirmed Type tiZANidine TAB* [Zanaflex TAB*] 2 mg PO BEDTIME PRN 07/11/19 07/27/19 History Atorvastatin* [Lipitor 10 MG*] 10 mg PO 1700 #30 tab 07/22/19 07/27/19 Rx Clopidogrel TAB* [Plavix TAB*] 75 mg PO DAILY #30 tab 07/22/19 07/27/19 Rx Acetaminophen TAB* [Tylenol TAB*] 650 mg PO Q6H PRN 07/27/19 07/27/19 History Erenumab-Aooe [Aimovig 70 mg SUBCUT MONTHLY 07/27/19 07/27/19 History Autoinjector] Multivitamins/Minerals TAB* 1 tab PO DAILY 07/27/19 07/27/19 History [Theragran/minerals TAB*] No changes in home medication. Disposition: Home Condition: Stable Primary Diagnosis: 1. Hemiplegic migraine Diagnostic Imaging: CT brain: no new hemorrhages seen CTA: previous left MCA territory infarct seen. Improved opacification of distal left M1 segment, M2/M3 segments of left MCA are diminutive. 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 Pertinent Laboratory Results: Laboratory Last Values WBC 7.1 10^3/uL (3.5-10.8) 07/27/19 18:58 RBC 4.67 10^6 /uL (3.70-4.87) 07/27/19 18:58 Hgb 13.5 g/dL (12.0-16.0) 07/27/19 18:58 Hct 39 % (35-47) 07/27/19 18:58 MCV 83 fL (80-97) 07/27/19 18:58 MCH 29 pg (27-31) 07/27/19 18:58 MCHC 35 g/dL (31-36) 07/27/19 18:58 RDW 14 % (10-15) 07/27/19 18:58 Plt Count 325 10^3/uL (150-450) 07/27/19 18:58 MPV 7.5 fL (7.4-10.4) 07/27/19 18:58 Neut % (Auto) 58.1 % 07/27/19 18:58 Lymph % (Auto) 30.9 % 07/27/19 18:58 [place] % (Auto) 6.5 % 07/27/19 18:58 Eos % (Auto) 3.9 % 07/27/19 18:58 Baso % (Auto) 0.6 % 07/27/19 18:58 Absolute Neuts (auto) 4.1 10^3/ul (1.5-7.7) 07/27/19 18:58 Absolute Lymphs (auto) 2.2 10^3/ul (1.0-4.8) 07/27/19 18:58 Absolute Monos (auto) 0.5 10^3/ul (0-0.8) 07/27/19 18:58 Absolute Eos (auto) 0.3 10^3/ul (0-0.6) 07/27/19 18:58 Absolute Basos (auto) 0.0 10^3/ul (0-0.2) 07/27/19 18:58 Absolute Nucleated RBC 0.0 10^3/ul 07/27/19 18:58 Nucleated RBC % 0.0 07/27/19 18:58 INR (Anticoag Therapy) 1.16 (0.82-1.09) H 07/27/19 18:58 APTT 37.5 seconds (26.0-38.0) 07/27/19 18:58 Sodium 138 mmol/L (135-145) 07/27/19 18:58 Potassium 3.8 mmol/L (3.5-5.0) 07/27/19 18:58 Chloride 106 mmol/L (101-111) 07/27/19 18:58 Carbon Dioxide 26 mmol/L (22-32) 07/27/19 18:58 Anion Gap 6 mmol/L (2-11) 07/27/19 18:58 BUN 8 mg/dL (6-24) 07/27/19 18:58 Creatinine 0.73 mg/dL (0.51-0.95) 07/27/19 18:58 Est GFR ( Amer) 108.5 (>60) 07/27/19 18:58 Est GFR (Non-Af Amer) 89.7 (>60) 07/27/19 18:58 BUN/Creatinine Ratio 11.0 (8-20) 07/27/19 18:58 Glucose 108 mg/dL (70-100) H 07/27/19 18:58 Lactic Acid 1.3 mmol/L (0.5-2.0) 07/27/19 18:58 Calcium 9.5 mg/dL (8.6-10.3) 07/27/19 18:58 Total Bilirubin 0.90 mg/dL (0.2-1.0) 07/27/19 18:58 AST 16 U/L (13-39) 07/27/19 18:58 ALT 36 U/L (7-52) 07/27/19 18:58 Alkaline Phosphatase 66 U/L (34-104) 07/27/19 18:58 Troponin I 0.00 ng/mL (<0.03) 07/27/19 18:58 Total Protein 6.9 g/dL (6.4-8.9) 07/27/19 18:58 Albumin 4.2 g/dL (3.2-5.2) 07/27/19 18:58 Globulin 2.7 g/dL (2-4) 07/27/19 18:58 Albumin/Globulin Ratio 1.6 (1-3) 07/27/19 18:58 Triglycerides 65 mg/dL 07/27/19 18:58 Cholesterol 96 mg/dL 07/27/19 18:58 LDL Cholesterol 43 mg/dL 07/27/19 18:58 HDL Cholesterol 40.4 mg/dL 07/27/19 18:58 Urine Color Straw 07/27/19 20:45 Urine Appearance Clear 07/27/19 20:45 Urine pH 6.0 (5-9) 07/27/19 20:45 Ur Specific Bruce 1.040 (1.010-1.030) H 07/27/19 20:45 Urine Protein Negative (Negative) 07/27/19 20:45 Urine Ketones Negative (Negative) 07/27/19 20:45 Urine Blood Negative (Negative) 07/27/19 20:45 Urine Nitrate Negative (Negative) 07/27/19 20:45 Urine Bilirubin Negative (Negative) 07/27/19 20:45 Urine Urobilinogen Negative (Negative) 07/27/19 20:45 Ur Leukocyte Esterase Trace (Negative) A 07/27/19 20:45 Urine WBC (Auto) Trace(0-5/hpf) (Absent) 07/27/19 20:45 Urine RBC (Auto) Absent (Absent) 07/27/19 20:45 Ur Squamous Epith Cells Present (Absent) A 07/27/19 20:45 Urine Bacteria Absent (Absent) 07/27/19 20:45 Urine Glucose Negative (Negative) 07/27/19 20:45 Hospital Course: Claudia Hamlin is an unfortunate 38 years old who recently had left carotid dissection leading to a large left MCA stroke s/p TPA and embolectomy in [facility] in early July. She had near full recovery of her strength but remained expressive aphasia after the stroke. She [place] [facility] [place] for headache and recurrence of right sided weakness. Please refer to H&P dated 07/[address] Andi Nunez for more information. She had CT brain and CTA in ED, telestroke consultation was performed with Dr. Diez from [facility]. He reviewed imaging and compared with previous imaging from 07/13/19, and the volume of stroke is essentially unchanged, and no thrombus was noted. Patient was admitted to [facility] ICU for close monitoring in view of her carotid dissection and recent large infarct history. She had MRI brain 07/27 which revealed no new acute infarct. Her right side weakness resolved eventually with the disappearance of her headache. She was also seen by [facility] neurologist Dr. Ronald Miller, hemiplegic migraine seems to be most likely in her case. She was advised to keep on her current medication, including plavix, Lipitor, and Aimovig, and continue to follow up with Dr. Miller, and [facility] neurologist. On the afternoon of discharge, patient was back to her baseline physical status , expressive aphasia remained, strength 5 over all 4 limbs. Her sister who is her health care proxy was also updated about her condition on discharge. Follow Up Instructions: 1. Follow up with Dr. Ronald Miller outpatient 2. Follow up with [facility] neurologist as scheduled In case of an emergency or after clinic hours, please go to your nearest Emergency Department. You may also call the [facility] black top machine operator at .
[2019-07-28] MEDS ORDERED: Atorvastatin* 10 MG TAB PO SCH (17:00)
== END 2019-07-28 16:20 | disposition home or self-care (01) ==
LOC: ED 18:18 → ICU 21:32
PROVIDERS: ADMIT Hospitalist; ATTEND Internal Medicine Critical Care Medicine
DX: G43.409 Hemiplegic migraine, not intractable, without status migrainosus (principal); G81.91 Hemiplegia, unspecified affecting right dominant side; Z86.73 Personal history of transient ischemic attack (TIA), and cerebral infarction without residual deficits; Z79.02 Long term (current) use of antithrombotics/antiplatelets; Z79.899 Other long term (current) drug therapy
CPT/HCPCS: 36415; 70450; 70496; 70498; 70551; 71045; 80053; 80061; 81003; 81015; 83605; 84484; 85025; 85610; 85730; 87086; 93005; 96360; 96361; 96372; 99285; A9270-GY; G0378; J1644; Q9967